=== PATIENT | female | born 1980 | race Caucasian/White ===

== ENCOUNTER 2017-07-24 20:25 | Emergency (ER) | payer MEDICAID ==
[~2017-07-24] VITALS: Ht 157.5 cm; Wt 111.1 kg
[~2017-07-24 20:25] MED LIST: LORA1TAB12; PAROXETINE HCL 20 MG TABLET
[2017-07-24 21:13] LABS: Basophils # (auto) 0.1 uL; Basophils % (auto) 0.6 % (0.0-2.0); Eosinophils # (auto) 0.3 uL; Eosinophils % (auto) 2.1 % (0.0-7.0); Hematocrit 40.2 % (36.0-46.0); Hemoglobin 13.5 g/dL (12.2-16.2); Lymphocytes # (auto) 2.7 uL; Lymphocytes % (auto) 19.6 % (10.0-50.0); Mean Corpuscular Hgb Conc. 33.5 g/dL (32.0-36.0); Mean Corpuscular Volume 86.5 fL (80.0-100.0); Monocytes # (auto) 0.9 uL; Monocytes % (auto) 6.6 % (0.0-12.0); Neutrophils # (auto) 9.6 uL; Neutrophils % (auto) 71.1 % (37.0-80.0); Platelet Count (auto) 403 10^3/uL (140-450); Red Blood Cells 4.65 10^6/uL (4.0-5.20); Red Cell Distribution Width 13.8 % (11.8-14.3); White Blood Cell 13.5 10^3/uL (4.4-10.8)
[2017-07-24 21:18] LABS: Urine Bacteria FEW /hpf (None Seen); Urine Blood Negative /uL (Negative); Urine Specific Gravity 1.011 (1.001-1.035); Urine WBC 2 /hpf (0 - 5)
[2017-07-24 21:37] LABS: Albumin 3.3 g/dL (3.4-5.0); BUN/Creatinine Ratio 18.5; Bilirubin, Total 0.2 mg/dL (0.2-1.0); Calcium 8.6 mg/dL (8.5-10.1); Potassium 3.7 mmol/L (3.5-5.1); Total Protein 7.5 g/dL (6.4-8.2)
[2017-07-25 03:06] VITALS: BP 133/84
[2017-07-25] MEDS ORDERED: LEVOFLOXACIN 250 MG TAB PO ONE (03:30)
[2017-07-25] MEDS ORDERED: ALBUTEROL SULF 2.5 MG/0.5ML(0.5%) NEB SOLN NEB ONE (03:30)
[2017-07-25] MEDS ORDERED: SODIUM CHLORIDE 0.9% 1,000 ML IV ONE (03:30)
[2017-07-25] MEDS ORDERED: methylPREDNISolone SOD SUCC 125 MG/2 ML VL IV ONE (03:30)
[2017-07-25] MEDS ORDERED: IPRATROPIUM BROM 0.5 MG/2.5ML INH SOL NEB ONE (03:30)
== END 2017-07-25 05:13 | disposition home or self-care (01) ==
LOC: ER 20:25
DX: J06.9 Acute upper respiratory infection, unspecified (principal); J45.909 Unspecified asthma, uncomplicated; D72.829 Elevated white blood cell count, unspecified; F17.210 Nicotine dependence, cigarettes, uncomplicated; E66.01 Morbid (severe) obesity due to excess calories; Z68.41 Body mass index [BMI] 40.0-44.9, adult
CPT/HCPCS: 36415; 71045; 74176; 80053; 81001; 83690; 84702; 85025; 94640; 96374; 99285; J2930

== ENCOUNTER 2018-02-17 04:42 | Emergency (ER) | payer MEDICAID ==
[~2018-02-17] VITALS: Ht 157.5 cm; Wt 104.3 kg
[2018-02-17 04:54] VITALS: BP 160/93
[2018-02-17] MEDS ORDERED: LORazepam 0.5 MG TAB PO ONE (06:45)
[2018-02-17] MEDS ORDERED: methylPREDNISolone SOD SUCC 125 MG/2 ML VL IM ONE (06:45)
== END 2018-02-17 07:29 | disposition home or self-care (01) ==
LOC: EDBD 04:42 → ER 04:50
DX: F41.9 Anxiety disorder, unspecified (principal); R06.02 Shortness of breath; F32.9 Major depressive disorder, single episode, unspecified; J45.909 Unspecified asthma, uncomplicated; G47.30 Sleep apnea, unspecified; F17.210 Nicotine dependence, cigarettes, uncomplicated
CPT/HCPCS: 71046; 81025; 96372; 99284; J2930

== ENCOUNTER 2018-03-30 23:01 | Emergency (ER) | payer MEDICAID ==
[~2018-03-30] VITALS: Ht 157.5 cm; Wt 99.8 kg
[2018-03-30 23:09] VITALS: BP 148/52
[2018-03-30] MEDS ORDERED: ALBUTEROL SULF 2.5 MG/0.5ML(0.5%) NEB SOLN HHN ONE (23:45)
[2018-03-30] MEDS ORDERED: IPRATROPIUM BROM 0.5 MG/2.5ML INH SOL HHN ONE (23:45)
[2018-03-31 01:17] LABS: Basophils # (auto) 0.1 uL; Basophils % (auto) 0.8 % (0.0-2.0); Eosinophils # (auto) 0.2 uL; Eosinophils % (auto) 1.8 % (0.0-7.0); Hematocrit 43.1 % (36.0-46.0); Hemoglobin 14.4 g/dL (12.2-16.2); Mean Corpuscular Hemoglobin 30.3 pg (28.0-32.0); Mean Corpuscular Hgb Conc. 33.4 g/dL (32.0-36.0); Mean Corpuscular Volume 90.6 fL (80.0-100.0); Monocytes # (auto) 0.7 uL; Monocytes % (auto) 7.8 % (0.0-12.0); Neutrophils # (auto) 5.4 uL; Neutrophils % (auto) 57.6 % (37.0-80.0); Nucleated Red Blood Cells % 0.1 %; Platelet Count (auto) 346 10^3/uL (140-450); Red Blood Cells 4.76 10^6/uL (4.0-5.20); Red Cell Distribution Width 15.4 % (11.8-14.3); White Blood Cell 9.4 10^3/uL (4.4-10.8)
[2018-03-31 01:34] LABS: Alanine Aminotransferase 35 U/L (13-56); Albumin 3.6 g/dL (3.4-5.0); Anion Gap 9 (5-15); Aspartate Aminotransferase 23 U/L (15-37); BUN/Creatinine Ratio 9.3; Blood Urea Nitrogen 7 mg/dL (7-18); Calcium 8.4 mg/dL (8.5-10.1); Carbon Dioxide 26 mmol/L (21-32); Chloride 104 mmol/L (98-107); GFR African American 112 mL/min; GFR Non-African American 92 mL/min; Glucose 92 mg/dL (74-106); Potassium 3.8 mmol/L (3.5-5.1); Sodium 139 mmol/L (136-145)
[2018-03-31 01:39] LABS: Alkaline Phosphatase 89 U/L (45-117); Bilirubin, Total 0.3 mg/dL (0.2-1.0); Total Protein 7.6 g/dL (6.4-8.2)
[2018-03-31] MEDS ORDERED: methylPREDNISolone SOD SUCC 125 MG/2 ML VL IM ONE (02:00)
== END 2018-03-31 04:57 | disposition home or self-care (01) ==
LOC: EDBD 23:01 → ER 23:06
DX: J45.901 Unspecified asthma with (acute) exacerbation (principal); Z87.891 Personal history of nicotine dependence
CPT/HCPCS: 36415; 71045; 80053; 83735; 83880; 84484; 85025; 94640; 96372; 99284; J2930; J7611; J7644

== ENCOUNTER 2018-04-08 11:54 | Emergency (ER) | payer MEDICAID ==
[~2018-04-08] VITALS: Ht 157.5 cm; Wt 104.3 kg
[2018-04-08 12:36] VITALS: BP 137/88
[2018-04-08] MEDS ORDERED: KETOROLAC TROMETH 60MG/2ML VIAL IM ONE (13:30)
[2018-04-08] MEDS ORDERED: IPRATROPIUM BROM 0.5 MG/2.5ML INH SOL NEB ONE (13:30)
[2018-04-08] MEDS ORDERED: ALBUTEROL SULF 2.5 MG/0.5ML(0.5%) NEB SOLN NEB ONE (13:30)
[2018-04-08] MEDS ORDERED: ALPRAZolam 0.5 MG TAB PO ONE (13:45)
== END 2018-04-08 13:53 | disposition home or self-care (01) ==
LOC: ER 11:56
DX: J45.901 Unspecified asthma with (acute) exacerbation (principal); G43.909 Migraine, unspecified, not intractable, without status migrainosus; F41.1 Generalized anxiety disorder
CPT/HCPCS: 71046; 94640; 96372; 99283; J1885; J7611; J7644

== ENCOUNTER 2018-04-22 11:05 | Emergency (ER) | payer MEDICAID ==
[~2018-04-22] VITALS: Ht 157.5 cm; Wt 99.8 kg
[2018-04-22 12:36] VITALS: BP 125/81
[2018-04-22] MEDS ORDERED: methylPREDNISolone SOD SUCC 125 MG/2 ML VL IM ONE (13:15)
[2018-04-22] MEDS ORDERED: IPRATROPIUM BROM 0.5 MG/2.5ML INH SOL NEB ONE (13:15)
[2018-04-22] MEDS ORDERED: diphenhdrAMINE HCL 50 MG/1 ML VL IM ONE (13:15)
[2018-04-22] MEDS ORDERED: ALBUTEROL SULF 2.5 MG/0.5ML(0.5%) NEB SOLN NEB ONE (13:15)
== END 2018-04-22 13:53 | disposition home or self-care (01) ==
LOC: ER 11:05
DX: J45.901 Unspecified asthma with (acute) exacerbation (principal); F41.1 Generalized anxiety disorder; F32.9 Major depressive disorder, single episode, unspecified; Z87.891 Personal history of nicotine dependence
CPT/HCPCS: 94640; 96372; 99283; J2930; J7611; J7644

== ENCOUNTER 2018-05-18 07:16 | Emergency (ER) | payer MEDICAID ==
[~2018-05-18] VITALS: Ht 157.5 cm; Wt 108.9 kg
[2018-05-18 07:45] VITALS: BP 150/93
[2018-05-18] MEDS ORDERED: ALBUTEROL SULF 2.5 MG/0.5ML(0.5%) NEB SOLN NEB ONE (07:45)
[2018-05-18] MEDS ORDERED: IPRATROPIUM BROM 0.5 MG/2.5ML INH SOL NEB ONE (07:45)
[2018-05-18] MEDS ORDERED: methylPREDNISolone SOD SUCC 125 MG/2 ML VL IM ONE (08:15)
== END 2018-05-18 08:31 | disposition home or self-care (01) ==
LOC: ER 07:18
DX: J02.9 Acute pharyngitis, unspecified (principal); J45.909 Unspecified asthma, uncomplicated; Z87.891 Personal history of nicotine dependence
CPT/HCPCS: 94640; 96372; 99283; J2930; J7611; J7644

== ENCOUNTER 2018-05-18 09:13 | Emergency (ER) | payer MEDICAID ==
[~2018-05-18] VITALS: Ht 157.5 cm; Wt 108.9 kg
[2018-05-18 09:18] VITALS: BP 141/83
[2018-05-18] MEDS ORDERED: diphenhdrAMINE HCL 25 MG CAP PO ONE (10:15)
== END 2018-05-18 11:27 | disposition home or self-care (01) ==
LOC: ER 09:13
DX: F41.9 Anxiety disorder, unspecified (principal); F32.9 Major depressive disorder, single episode, unspecified; J45.909 Unspecified asthma, uncomplicated; Z88.8 Allergy status to other drugs, medicaments and biological substances; Z79.899 Other long term (current) drug therapy

== ENCOUNTER 2018-08-29 18:29 | Emergency (ER) | payer MEDICAID ==
[~2018-08-29] VITALS: Ht 157.5 cm; Wt 104.3 kg
[2018-08-29 18:45] VITALS: BP 138/82
[2018-08-29] MEDS ORDERED: DexAMETHasone SOD PHOS 10MG/1ML VIAL INJ IM ONE (20:45)
[2018-08-29] MEDS ORDERED: cefTRIAXone SOD 1,000 MG VL IM ONE (20:45)
== END 2018-08-29 21:29 | disposition home or self-care (01) ==
LOC: ER 18:31
DX: J06.9 Acute upper respiratory infection, unspecified (principal); J30.9 Allergic rhinitis, unspecified; J35.1 Hypertrophy of tonsils
CPT/HCPCS: 96372; 99283; J0696; J1100

== ENCOUNTER 2019-02-14 19:11 | Emergency (ER) | payer MEDICAID ==
[~2019-02-14] VITALS: Ht 157.5 cm; Wt 104.3 kg
[2019-02-14 20:15] LABS: Basophils # (auto) 0.1 uL; Basophils % (auto) 0.6 % (0.0-2.0); Eosinophils # (auto) 0.2 uL; Eosinophils % (auto) 2.2 % (0.0-7.0); Hematocrit 40.4 % (36.0-46.0); Hemoglobin 13.6 g/dL (12.2-16.2); Lymphocytes # (auto) 2.6 uL; Lymphocytes % (auto) 25.3 % (10.0-50.0); Mean Corpuscular Hemoglobin 30.3 pg (28.0-32.0); Mean Corpuscular Hgb Conc. 33.6 g/dL (32.0-36.0); Mean Corpuscular Volume 90.2 fL (80.0-100.0); Monocytes # (auto) 0.7 uL; Monocytes % (auto) 6.3 % (0.0-12.0); Neutrophils # (auto) 6.8 uL; Neutrophils % (auto) 65.6 % (37.0-80.0); Platelet Count (auto) 356 10^3/uL (140-450); Red Blood Cells 4.48 10^6/uL (4.0-5.20); Red Cell Distribution Width 14.1 % (11.8-14.3); White Blood Cell 10.3 10^3/uL (4.4-10.8)
[2019-02-14 20:34] LABS: Alcohol, Urine < 3.0 mg/dL (0-5); Amphetamine Screen, Urine NEGATIVE (NEGATIVE); Barbiturate Scree,Urine NEGATIVE (NEGATIVE); Benzodiazephine Screen, Urine NEGATIVE (NEGATIVE); Cannabinoid Screen, Urine NEGATIVE (NEGATIVE); Cocaine Screen, Urine NEGATIVE (NEGATIVE); Opiate Scree,Urine NEGATIVE (NEGATIVE); Phencyclidine Screen, Urine NEGATIVE (NEGATIVE); Urine Bacteria FEW /hpf (None Seen); Urine Blood 1+ /uL (Negative); Urine WBC 4 /hpf (0 - 5)
[2019-02-14 20:35] LABS: Albumin 3.7 g/dL (3.4-5.0); Calcium 8.5 mg/dL (8.5-10.1); Potassium 3.7 mmol/L (3.5-5.1)
[2019-02-14 20:39] LABS: BUN/Creatinine Ratio 11.4; Bilirubin, Total 0.2 mg/dL (0.2-1.0); Total Protein 7.3 g/dL (6.4-8.2)
[2019-02-14 23:08] VITALS: BP 145/85
== END 2019-02-14 23:18 | disposition home or self-care (01) ==
LOC: ER 19:11
DX: J45.901 Unspecified asthma with (acute) exacerbation (principal); Z77.22 Contact with and (suspected) exposure to environmental tobacco smoke (acute) (chronic)
CPT/HCPCS: 36415; 71045; 80053; 80307; 81001; 81025; 85025

== ENCOUNTER 2019-05-02 23:42 | Emergency (ER) | payer MEDICAID ==
[~2019-05-02] VITALS: Ht 162.6 cm; Wt 90.7 kg
[2019-05-03 06:04] VITALS: BP 125/91
== END 2019-05-03 06:35 | disposition home or self-care (01) ==
LOC: EDBD 23:42 → ER 23:45
DX: F41.9 Anxiety disorder, unspecified (principal); J45.909 Unspecified asthma, uncomplicated; F32.9 Major depressive disorder, single episode, unspecified; Z76.0 Encounter for issue of repeat prescription

== ENCOUNTER 2019-07-13 09:52 | Emergency (ER) | payer MEDICAID ==
[~2019-07-13] VITALS: Ht 157.5 cm; Wt 99.8 kg
[2019-07-13 11:01] VITALS: BP 127/77
[2019-07-13] MEDS ORDERED: methylPREDNISolone SOD SUCC 125 MG/2 ML VL IM ONE (11:45)
[2019-07-13] MEDS ORDERED: cefTRIAXone SOD 1,000 MG VL IM ONE (11:45)
[2019-07-13] MEDS ORDERED: LIDOCAINE 1% HCL (LOCAL ANESTH.) INJ 20ML MDV ONE (12:11)
== END 2019-07-13 12:44 | disposition home or self-care (01) ==
LOC: ER 09:52
DX: R21 Rash and other nonspecific skin eruption (principal); L08.9 Local infection of the skin and subcutaneous tissue, unspecified; J45.909 Unspecified asthma, uncomplicated; Z88.8 Allergy status to other drugs, medicaments and biological substances; Z79.899 Other long term (current) drug therapy
CPT/HCPCS: 96372; 99284; J0696; J2001; J2930

== ENCOUNTER 2019-08-20 05:42 | Emergency (ER) | payer MEDICAID ==
[~2019-08-20] VITALS: Ht 162.6 cm; Wt 99.8 kg
[~2019-08-20 05:42] MED LIST changes: -LORA1TAB12; +LORA1TAB23
[2019-08-20 07:10] VITALS: BP 179/89
[2019-08-20] MEDS ORDERED: IPRATROPIUM BROM 0.5 MG/2.5ML INH SOL NEB ONE (07:15)
[2019-08-20] MEDS ORDERED: ALBUTEROL SULF 2.5 MG/0.5ML(0.5%) NEB SOLN NEB ONE (07:15)
== END 2019-08-20 07:35 | disposition home or self-care (01) ==
LOC: EDBD 05:42 → ER 05:42
DX: J45.901 Unspecified asthma with (acute) exacerbation (principal); F41.9 Anxiety disorder, unspecified; Z76.0 Encounter for issue of repeat prescription
CPT/HCPCS: 94640; 99283; J7644

== ENCOUNTER 2019-09-29 12:11 | Emergency (ER) | payer MEDICAID ==
[~2019-09-29] VITALS: Ht 157.5 cm; Wt 108.9 kg
[2019-09-29] MEDS ORDERED: ACETAMINOPHEN 325 MG TAB PO ONE (14:30)
[2019-09-29 17:00] VITALS: BP 140/92
== END 2019-09-29 18:02 | disposition home or self-care (01) ==
LOC: ER 12:11
DX: J20.8 Acute bronchitis due to other specified organisms (principal); Z20.828 Contact with and (suspected) exposure to other viral communicable diseases
CPT/HCPCS: 36415; 71045; 87426

== ENCOUNTER 2021-06-20 08:37 | Emergency (ER) | payer MEDICAID ==
[~2021-06-20] VITALS: Ht 157.5 cm; Wt 83.9 kg
[2021-06-20] MEDS ORDERED: LORazepam 2MG/ML-1ML VIAL IV ONE (09:30)
[2021-06-20] MEDS ORDERED: ONDANSETRON HCL 4 MG/2 ML VIAL IV ONE (09:30)
[2021-06-20] MEDS ORDERED: IPRATROPIUM BROM 0.5 MG/2.5ML INH SOL NEB ONE (10:30)
[2021-06-20] MEDS ORDERED: ALBUTEROL SULF 2.5 MG/0.5ML(0.5%) NEB SOLN NEB ONE (10:30)
[2021-06-20] MEDS ORDERED: SODIUM CHLORIDE 0.9% 1,000 ML IV ONE ×2 (10:30→10:45)
[2021-06-20 11:14] LABS: Basophils # (auto) 0.1 10 ^3/uL (0-0.2); Basophils % (auto) 1.3 % (0.0-2.0); Eosinophils # (auto) 0.1 10 ^3/uL (0-0.8); Eosinophils % (auto) 1.3 % (0.0-7.0); Hematocrit 39.1 % (36.0-46.0); Hemoglobin 13.3 g/dL (12.2-16.2); Lymphocytes # (auto) 1.3 10 ^3/uL (0.4-5.4); Lymphocytes % (auto) 16.2 % (10.0-50.0); Mean Corpuscular Hemoglobin 31.9 pg (28.0-32.0); Mean Corpuscular Hgb Conc. 33.9 g/dL (32.0-36.0); Mean Corpuscular Volume 94.2 fL (80.0-100.0); Monocytes # (auto) 0.5 10 ^3/uL (0-1.3); Monocytes % (auto) 6.6 % (0.0-12.0); Neutrophils # (auto) 6.1 10 ^3/uL (1.6-8.6); Neutrophils % (auto) 74.6 % (37.0-80.0); Red Blood Cells 4.15 10^6/uL (4.0-5.20); Red Cell Distribution Width 14.8 % (11.8-14.3); White Blood Cell 8.2 10^3/uL (4.4-10.8)
[2021-06-20 11:38] LABS: Albumin 3.7 g/dL (3.4-5.0); BUN/Creatinine Ratio 6.5; Calcium 8.4 mg/dL (8.5-10.1); Magnesium 1.8 mg/dL (1.6-2.6); Potassium 3.7 mmol/L (3.5-5.1)
[2021-06-20 11:42] LABS: Bilirubin, Total 0.7 mg/dL (0.2-1.0); Total Protein 7.8 g/dL (6.4-8.2)
[2021-06-20] MEDS ORDERED: IOHEXOL 350 MG/ML 100ML IJ ONE (12:09)
[2021-06-20 14:41] LABS: Urine Bacteria NONE SEEN /hpf (None Seen); Urine Blood 3+ /uL (Negative); Urine Mucus FEW (None Seen); Urine Specific Gravity 1.017 (1.001-1.035); Urine WBC 9 /hpf (0 - 5)
[2021-06-20] MEDS ORDERED: cefTRIAXone 1GM/50ML D5W 50 ML IV ONE (16:15)
[2021-06-20] MEDS ORDERED: ACETAMINOPHEN 325 MG TAB PO ONE (16:15)
[2021-06-20] MEDS ORDERED: PRED20TA2 PO (18:07)
[2021-06-20] MEDS ORDERED: CIPR-173 PO (18:07)
[2021-06-20] MEDS ORDERED: BACI1OIN45 EX (18:07)
[2021-06-20] MEDS ORDERED: ALBUAER3 IN (18:07)
[2021-06-20 18:34] VITALS: BP 147/83
== END 2021-06-20 18:52 | disposition home or self-care (01) ==
LOC: EDBD 08:37 → ER 08:37
DX: J45.901 Unspecified asthma with (acute) exacerbation (principal); N39.0 Urinary tract infection, site not specified; K76.0 Fatty (change of) liver, not elsewhere classified; K44.9 Diaphragmatic hernia without obstruction or gangrene; Z77.22 Contact with and (suspected) exposure to environmental tobacco smoke (acute) (chronic)
CPT/HCPCS: 36415; 71046; 71275; 80053; 81001; 83735; 84443; 85025; 85379; 93005; 94640; 96361; 96365; 96375; 99285; J0696; J2060; J2405; J7030; J7644; Q9967

== ENCOUNTER 2021-07-16 10:51 | Emergency (ER) | payer MEDICAID ==
[~2021-07-16] VITALS: Ht 157.5 cm; Wt 108.9 kg
[~2021-07-16 10:51] MED LIST changes: +ALBUAER3 IN; +BACI1OIN45 EX; +CIPR-173 PO; +PRED20TA2 PO
[2021-07-16] MEDS ORDERED: ACETAMINOPHEN/CODEINE#3 (300/30mg) TAB PO ONE (16:00)
[2021-07-16] MEDS ORDERED: ONDANSETRON ODT 4 MG TAB PO ONE (16:00)
[2021-07-16 16:46] VITALS: BP 146/90
[2021-07-16] MEDS ORDERED: ACE3T PO (16:51)
== END 2021-07-16 17:23 | disposition home or self-care (01) ==
LOC: ER 10:51
DX: S83.91XA Sprain of unspecified site of right knee, initial encounter (principal); J45.909 Unspecified asthma, uncomplicated; Z77.22 Contact with and (suspected) exposure to environmental tobacco smoke (acute) (chronic); X58.XXXA Exposure to other specified factors, initial encounter; Y93.89 Activity, other specified; Y92.89 Other specified places as the place of occurrence of the external cause; Y99.8 Other external cause status
CPT/HCPCS: 29505; 73562; 93971; 99284; Q0162

== ENCOUNTER 2021-08-17 10:11 | Emergency (ER) | payer MEDICAID ==
[~2021-08-17] VITALS: Ht 157.5 cm; Wt 113.4 kg
[~2021-08-17 10:11] MED LIST changes: +ACE3T PO
[2021-08-17 11:02] LABS: Urine Bacteria NONE SEEN /hpf (None Seen); Urine Blood 3+ /uL (Negative); Urine WBC 4 /hpf (0 - 5)
[2021-08-17 11:09] LABS: Basophils # (auto) 0.1 10 ^3/uL (0-0.2); Basophils % (auto) 0.9 % (0.0-2.0); Eosinophils # (auto) 0.2 10 ^3/uL (0-0.8); Eosinophils % (auto) 3.1 % (0.0-7.0); Hematocrit 38.1 % (36.0-46.0); Hemoglobin 12.3 g/dL (12.2-16.2); Lymphocytes # (auto) 1.2 10 ^3/uL (0.4-5.4); Lymphocytes % (auto) 18.5 % (10.0-50.0); Mean Corpuscular Hemoglobin 31.2 pg (28.0-32.0); Mean Corpuscular Hgb Conc. 32.2 g/dL (32.0-36.0); Mean Corpuscular Volume 96.8 fL (80.0-100.0); Monocytes # (auto) 0.6 10 ^3/uL (0-1.3); Monocytes % (auto) 9.2 % (0.0-12.0); Neutrophils # (auto) 4.3 10 ^3/uL (1.6-8.6); Neutrophils % (auto) 68.3 % (37.0-80.0); Red Blood Cells 3.93 10^6/uL (4.0-5.20); Red Cell Distribution Width 15.1 % (11.8-14.3); White Blood Cell 6.3 10^3/uL (4.4-10.8)
[2021-08-17 11:27] LABS: Albumin 3.4 g/dL (3.4-5.0); Calcium 8.9 mg/dL (8.5-10.1); Potassium 3.6 mmol/L (3.5-5.1)
[2021-08-17 11:31] LABS: BUN/Creatinine Ratio 6.5; Bilirubin, Total 0.8 mg/dL (0.2-1.0); Total Protein 7.5 g/dL (6.4-8.2)
[2021-08-17] MEDS ORDERED: TRAM-297 PO (16:22)
[2021-08-17] MEDS ORDERED: NITR-87 PO (16:22)
[2021-08-17] MEDS ORDERED: SODIUM CHLORIDE 0.9% 1,000 ML IV ONE (18:15)
[2021-08-17] MEDS ORDERED: MORPHINE SULFATE 4 MG/ML SYR/VIAL IV ONE (18:15)
[2021-08-17] MEDS ORDERED: ONDANSETRON HCL 4 MG/2 ML VIAL IV ONE (18:15)
[2021-08-17 20:25] VITALS: BP 168/83
== END 2021-08-18 00:50 | disposition home or self-care (01) ==
LOC: ER 10:11
DX: N39.0 Urinary tract infection, site not specified (principal); I10 Essential (primary) hypertension; J45.909 Unspecified asthma, uncomplicated; Z79.899 Other long term (current) drug therapy; Z88.8 Allergy status to other drugs, medicaments and biological substances
CPT/HCPCS: 36415; 74176; 80053; 81001; 81025; 82150; 83690; 85025; 93005; 96361; 96374; 96375; 99285; J2270; J2405; J7030

== ENCOUNTER 2022-01-12 13:17 | Emergency (ER) | payer MEDICAID ==
[~2022-01-12] VITALS: Ht 167.6 cm; Wt 120.0 kg
[~2022-01-12 13:17] MED LIST changes: +NITR-87 PO; +TRAM-297 PO
[2022-01-12 15:29] LABS: Basophils # (auto) 0.1 10 ^3/uL (0-0.2); Basophils % (auto) 0.9 % (0.0-2.0); Eosinophils # (auto) 0.1 10 ^3/uL (0-0.8); Eosinophils % (auto) 1.1 % (0.0-7.0); Hematocrit 45.4 % (36.0-46.0); Hemoglobin 15.1 g/dL (12.2-16.2); Lymphocytes # (auto) 1.6 10 ^3/uL (0.4-5.4); Lymphocytes % (auto) 28.3 % (10.0-50.0); Mean Corpuscular Hgb Conc. 33.3 g/dL (32.0-36.0); Mean Corpuscular Volume 89.9 fL (80.0-100.0); Monocytes # (auto) 0.5 10 ^3/uL (0-1.3); Monocytes % (auto) 9.6 % (0.0-12.0); Neutrophils # (auto) 3.4 10 ^3/uL (1.6-8.6); Neutrophils % (auto) 60.1 % (37.0-80.0); Nucleated Red Blood Cells % 0.2 %; Red Blood Cells 5.05 10^6/uL (4.0-5.20); Red Cell Distribution Width 14.8 % (11.8-14.3); White Blood Cell 5.7 10^3/uL (4.4-10.8)
[2022-01-12 15:53] LABS: Albumin 3.7 g/dL (3.4-5.0); BUN/Creatinine Ratio 7.2; Calcium 8.5 mg/dL (8.5-10.1); Potassium 3.5 mmol/L (3.5-5.1)
[2022-01-12 15:56] LABS: Bilirubin, Total 0.3 mg/dL (0.2-1.0); Total Protein 7.4 g/dL (6.4-8.2)
[2022-01-12 21:02] VITALS: BP 129/80
== END 2022-01-12 21:06 | disposition home or self-care (01) ==
LOC: EDBD 13:17 → ER 13:26
DX: F10.10 Alcohol abuse, uncomplicated (principal); R41.82 Altered mental status, unspecified; J45.909 Unspecified asthma, uncomplicated; I10 Essential (primary) hypertension; Z77.22 Contact with and (suspected) exposure to environmental tobacco smoke (acute) (chronic); Z88.6 Allergy status to analgesic agent
CPT/HCPCS: 36415; 80053; 80320; 83690; 84702; 85025

== ENCOUNTER 2022-10-30 10:02 | Inpatient (IN) | payer MEDICAID ==
[~2022-10-30] VITALS: Ht 157.5 cm; Wt 111.4 kg
[~2022-10-30 10:02] MED LIST changes: +LORA-1123; +LORA-1123 PO; -LORA1TAB23
[2022-10-30] MEDS ORDERED: ALBUTEROL SULF 2.5 MG/0.5ML(0.5%) NEB SOLN NEB ONE (10:15)
[2022-10-30] MEDS ORDERED: IPRATROPIUM BROM 0.5 MG/2.5ML INH SOL NEB ONE (10:15)
[2022-10-30] MEDS ORDERED: DexAMETHasone SOD PHOS 10MG/1ML VIAL INJ IV ONE (10:15)
[2022-10-30 10:30] VITALS: PULSE 72; RESP 23; O2SAT 98
[2022-10-30 10:36] LABS: Basophils # (auto) 0.1 10 ^3/uL (0-0.2); Basophils % (auto) 1.3 % (0.0-2.0); Eosinophils # (auto) 0 10 ^3/uL (0-0.8); Eosinophils % (auto) 0.4 % (0.0-7.0); Hemoglobin 12.6 g/dL (12.2-16.2); Lymphocytes # (auto) 1.6 10 ^3/uL (0.4-5.4); Lymphocytes % (auto) 17.1 % (10.0-50.0); Mean Corpuscular Hgb Conc. 31.6 g/dL (32.0-36.0); Mean Corpuscular Volume 88.8 fL (80.0-100.0); Monocytes # (auto) 0.6 10 ^3/uL (0-1.3); Monocytes % (auto) 6.8 % (0.0-12.0); Neutrophils # (auto) 6.8 10 ^3/uL (1.6-8.6); Neutrophils % (auto) 74.4 % (37.0-80.0); Nucleated Red Blood Cells % 0.1 %; Red Blood Cells 4.51 10^6/uL (4.0-5.20); Red Cell Distribution Width 15.3 % (11.8-14.3); White Blood Cell 9.2 10^3/uL (4.4-10.8)
[2022-10-30 10:53] LABS: INR 1.05 (0.9-1.15); Partial Thromboplastin Time 27.2 SEC (24.5-34.5)
[2022-10-30 10:54] LABS: Alanine Aminotransferase 30 U/L (7-40); Albumin 4.5 g/dL (3.2-4.8); Alkaline Phosphatase 112 U/L (46-116); Anion Gap 7 (5-15); Aspartate Aminotransferase 40 U/L (13-40); Bilirubin, Total 0.2 mg/dL (0.2-1.0); Calcium 8.1 mg/dL (8.7-10.4); Carbon Dioxide 26 mmol/L (20-30); Chloride 109 mmol/L (98-107); Glucose 100 mg/dL (74-106); Potassium 3.8 mmol/L (3.5-5.1); Sodium 142 mmol/L (136-145)
[2022-10-30 11:37] LABS: BUN/Creatinine Ratio 7.6 (10.0-20.0); Blood Urea Nitrogen < 5 mg/dL (9-23)
[2022-10-30] MEDS ORDERED: AZITHROMYCIN 500MG/ 250ML 250 ML IV ONE (12:15)
[2022-10-30] MEDS ORDERED: ENOXAPARIN SOD 100 MG/1 ML SYRINGE SC ONE (12:15)
[2022-10-30] MEDS ORDERED: PIPERACILLIN-TAZOB 3.375GM 100 ML IV ONE (12:15)
[2022-10-30] MEDS ORDERED: MORPHINE SULFATE INJ 2 MG/ml SYRG IV PRN ×2 (14:30)
[2022-10-30] MEDS: ENOXAPARIN SOD 40 MG/0.4 ML SYRINGE SC SCH (14:30)
[2022-10-30] MEDS ORDERED: ONDANSETRON HCL 4 MG/2 ML VIAL IV PRN (14:30)
[2022-10-30] MEDS ORDERED: IPRATROPIUM BROM 0.5 MG/2.5ML INH SOL NEB PRN (14:30)
[2022-10-30] MEDS ORDERED: NITROGLYCERIN 0.4 MG SL TAB SL PRN (14:30)
[2022-10-30] MEDS ORDERED: ACETAMINOPHEN 325 MG TAB PO PRN (14:30)
[2022-10-30] MEDS ORDERED: DOCUSATE SOD 100 MG CAP PO PRN (14:30)
[2022-10-30] MEDS ORDERED: TEMAZEPAM 15 MG CAP PO PRN (14:30)
[2022-10-30 15:05] LABS: Urine Bacteria NONE SEEN /hpf (None Seen); Urine Blood 2+ /uL (Negative); Urine Clarity HAZY (Clear); Urine Color Yellow (Yellow); Urine Mucus FEW (None Seen); Urine Protein, UAD TRACE (Negative); Urine Specific Gravity 1.022 (1.001-1.035); Urine Urobilinogen Normal (Negative); Urine WBC 23 /hpf (0 - 5); Urine pH 5.5 (5.0-8.0)
[2022-10-30 16:19] LABS: COVID19 ANTIGEN SOFIA FIA NEGATIVE (NEGATIVE)
[2022-10-30 20:05] VITALS: PULSE 94; RESP 23; O2SAT 95
[2022-10-30] MEDS ORDERED: ALPRAZolam 0.5 MG TAB PO PRN (21:30)
[2022-10-30 22:03] VITALS: BP 135/75; PULSE 76; RESP 16; TEMP 98.7; O2SAT 94
[2022-10-30] MEDS: PIPERACILLIN-TAZOB 3.375GM 100 ML IV SCH (22:14)
[2022-10-30] MEDS: HYDROcodone-ACET 5/325MG TAB PO PRN (22:15)
[2022-10-30] MEDS: LISINOPRIL 20 MG TAB PO SCH (22:15)
[2022-10-30 22:24] VITALS: BP 135/75; PULSE 76; RESP 16; TEMP 98.7; O2SAT 94
[2022-10-31] VITALS (19 sets, daily range): BP systolic 107–142; BP diastolic 60–92; PULSE 47–82; RESP 12–23; TEMP 37.1; O2SAT 92–99
[2022-10-31] MEDS: PIPERACILLIN-TAZOB 3.375GM 100 ML IV SCH ×3 (05:33→22:11)
[2022-10-31 06:31] LABS: Alanine Aminotransferase 24 U/L (7-40); Albumin 4.5 g/dL (3.2-4.8); Alkaline Phosphatase 100 U/L (46-116); Anion Gap 5 (5-15); Aspartate Aminotransferase 20 U/L (13-40); BUN/Creatinine Ratio 8.2 (10.0-20.0); Bilirubin, Total 0.5 mg/dL (0.2-1.0); Blood Urea Nitrogen 6 mg/dL (9-23); Calcium 8.8 mg/dL (8.7-10.4); Carbon Dioxide 28 mmol/L (20-30); Chloride 105 mmol/L (98-107); Glucose 137 mg/dL (74-106); Potassium 3.7 mmol/L (3.5-5.1); Sodium 138 mmol/L (136-145)
[2022-10-31 06:33] LABS: Basophils # (auto) 0 10 ^3/uL (0-0.2); Basophils % (auto) 0.1 % (0.0-2.0); Eosinophils # (auto) 0 10 ^3/uL (0-0.8); Hematocrit 37.5 % (36.0-46.0); Hemoglobin 12.1 g/dL (12.2-16.2); Lymphocytes # (auto) 1.3 10 ^3/uL (0.4-5.4); Lymphocytes % (auto) 12.3 % (10.0-50.0); Mean Corpuscular Hemoglobin 28.4 pg (28.0-32.0); Mean Corpuscular Hgb Conc. 32.2 g/dL (32.0-36.0); Mean Corpuscular Volume 88.1 fL (80.0-100.0); Monocytes # (auto) 0.5 10 ^3/uL (0-1.3); Monocytes % (auto) 5.1 % (0.0-12.0); Neutrophils # (auto) 8.8 10 ^3/uL (1.6-8.6); Neutrophils % (auto) 82.5 % (37.0-80.0); Red Blood Cells 4.25 10^6/uL (4.0-5.20); White Blood Cell 10.6 10^3/uL (4.4-10.8)
[2022-10-31] MEDS ORDERED: GABA-1250 PO (07:45)
[2022-10-31] MEDS ORDERED: CITA10TA8 PO (07:45)
[2022-10-31] MEDS ORDERED: LORA-205 PO (07:45)
[2022-10-31] MEDS: PANTOPRAZOLE 40 MG TAB PO SCH (09:17)
[2022-10-31] MEDS: LISINOPRIL 20 MG TAB PO SCH (09:17)
[2022-10-31] MEDS: HYDROcodone-ACET 5/325MG TAB PO PRN ×2 (09:17→16:14)
[2022-10-31] MEDS: ASPirin 81 mg TAB PO SCH (09:17)
[2022-10-31] MEDS: FUROSEMIDE 20 MG/2 ML VIAL IV SCH (09:18)
[2022-10-31] MEDS: ENOXAPARIN SOD 40 MG/0.4 ML SYRINGE SC SCH (09:18)
[2022-10-31] MEDS: ALBUTEROL SULF 2.5 MG/0.5ML(0.5%) NEB SOLN NEB SCH (16:31)
[2022-10-31] MEDS: IPRATROPIUM BROM 0.5 MG/2.5ML INH SOL NEB SCH (19:22)
[2022-11-01] VITALS (18 sets, daily range): BP systolic 101–125; BP diastolic 61–80; PULSE 47–86; RESP 16–22; TEMP 35.8; O2SAT 95–99
[2022-11-01] MEDS: ALBUTEROL SULF 2.5 MG/0.5ML(0.5%) NEB SOLN NEB SCH ×3 (00:31→18:35)
[2022-11-01] MEDS: IPRATROPIUM BROM 0.5 MG/2.5ML INH SOL NEB SCH ×4 (00:32→18:35)
[2022-11-01] MEDS: PIPERACILLIN-TAZOB 3.375GM 100 ML IV SCH ×2 (05:35→13:35)
[2022-11-01 06:04] LABS: Basophils # (auto) 0.1 10 ^3/uL (0-0.2); Basophils % (auto) 0.6 % (0.0-2.0); Eosinophils # (auto) 0.1 10 ^3/uL (0-0.8); Eosinophils % (auto) 1.1 % (0.0-7.0); Hematocrit 37.7 % (36.0-46.0); Hemoglobin 12.1 g/dL (12.2-16.2); Lymphocytes # (auto) 3.2 10 ^3/uL (0.4-5.4); Lymphocytes % (auto) 37.4 % (10.0-50.0); Mean Corpuscular Hemoglobin 28.4 pg (28.0-32.0); Mean Corpuscular Hgb Conc. 32.1 g/dL (32.0-36.0); Mean Corpuscular Volume 88.3 fL (80.0-100.0); Monocytes # (auto) 0.6 10 ^3/uL (0-1.3); Monocytes % (auto) 7.5 % (0.0-12.0); Neutrophils # (auto) 4.5 10 ^3/uL (1.6-8.6); Neutrophils % (auto) 53.4 % (37.0-80.0); Nucleated Red Blood Cells % 0.1 %; Red Blood Cells 4.27 10^6/uL (4.0-5.20); Red Cell Distribution Width 15.2 % (11.8-14.3); White Blood Cell 8.4 10^3/uL (4.4-10.8)
[2022-11-01 06:20] LABS: Alanine Aminotransferase 32 U/L (7-40); Albumin 4.3 g/dL (3.2-4.8); Alkaline Phosphatase 85 U/L (46-116); Anion Gap 4 (5-15); Aspartate Aminotransferase 29 U/L (13-40); Bilirubin, Total 0.5 mg/dL (0.2-1.0); Blood Urea Nitrogen 10 mg/dL (9-23); Carbon Dioxide 32 mmol/L (20-30); Chloride 105 mmol/L (98-107); Glucose 97 mg/dL (74-106); Potassium 3.8 mmol/L (3.5-5.1); Sodium 141 mmol/L (136-145); Total Protein 6.7 g/dL (5.7-8.2)
[2022-11-01] MEDS: HYDROcodone-ACET 5/325MG TAB PO PRN (08:25)
[2022-11-01] MEDS ORDERED: AZITHROMYCIN 250 MG TAB PO SCH (10:00)
[2022-11-01] MEDS ORDERED: methylPREDNISolone SOD SUCC 40 MG/ML VL IV SCH (10:00)
[2022-11-01] MEDS: ENOXAPARIN SOD 40 MG/0.4 ML SYRINGE SC SCH (10:09)
[2022-11-01] MEDS: LISINOPRIL 20 MG TAB PO SCH (10:10)
[2022-11-01] MEDS: PANTOPRAZOLE 40 MG TAB PO SCH (10:10)
[2022-11-01] MEDS: ASPirin 81 mg TAB PO SCH (10:10)
[2022-11-01] MEDS: FUROSEMIDE 20 MG/2 ML VIAL IV SCH (10:11)
[2022-11-01] MEDS ORDERED: PRED20TA2 PO (11:14)
[2022-11-01] MEDS ORDERED: AZIT500T66 PO (11:14)
== END 2022-11-01 22:10 | disposition home or self-care (01) | DRG 133 ==
LOC: ER 10:02 → EDBD 10:02 → TELE 14:27 → TELE-WESTW 21:39
PROVIDERS: ADMIT Nurse Practitioner; ATTEND Nurse Practitioner
PROC: 5A09357 Assistance with Respiratory Ventilation, Less than 24 Consecutive Hours, Continuous Positive Airway Pressure (ICD-10-PCS; principal; 2022-10-31)
PROC: 5A09357 Assistance with Respiratory Ventilation, Less than 24 Consecutive Hours, Continuous Positive Airway Pressure (ICD-10-PCS; 2022-11-01)
DX: J96.01 Acute respiratory failure with hypoxia (principal); I21.A1 Myocardial infarction type 2; J15.6 Pneumonia due to other Gram-negative bacteria; I11.0 Hypertensive heart disease with heart failure; I50.32 Chronic diastolic (congestive) heart failure; J44.0 Chronic obstructive pulmonary disease with (acute) lower respiratory infection; J44.1 Chronic obstructive pulmonary disease with (acute) exacerbation; F41.9 Anxiety disorder, unspecified; E66.01 Morbid (severe) obesity due to excess calories; G47.33 Obstructive sleep apnea (adult) (pediatric); Z20.822 Contact with and (suspected) exposure to COVID-19; F17.200 Nicotine dependence, unspecified, uncomplicated; N39.0 Urinary tract infection, site not specified; J98.11 Atelectasis; Z80.9 Family history of malignant neoplasm, unspecified; Z68.41 Body mass index [BMI] 40.0-44.9, adult; Z82.49 Family history of ischemic heart disease and other diseases of the circulatory system; Z82.5 Family history of asthma and other chronic lower respiratory diseases; Z83.3 Family history of diabetes mellitus; Z85.828 Personal history of other malignant neoplasm of skin; Z86.711 Personal history of pulmonary embolism; Z88.8 Allergy status to other drugs, medicaments and biological substances
CPT/HCPCS: 36415; 71045; 80053; 81001; 81025; 83880; 84443; 84484; 85025; 85379; 85610; 85730; 87086; 87426; 93005; 93306; 94640; 94660; 96365; 96367; 96372; 96375; G0378; J1100; J2543

== ENCOUNTER 2022-12-09 20:42 | Inpatient (IN) | payer MEDICAID ==
[~2022-12-09] VITALS: Ht 170.2 cm; Wt 105.0 kg
[2022-12-09] MEDS: fentaNYL Drip 2500mCg/250mlNS 250 ML IV SCH (01:40)
[~2022-12-09 20:42] MED LIST changes: -ACE3T PO; +AZIT500T66 PO; -BACI1OIN45 EX; -CIPR-173 PO; +CITA10TA8 PO; +GABA-1250 PO; -LORA-1123; -LORA-1123 PO; +LORA-205 PO; -NITR-87 PO; -PAROXETINE HCL 20 MG TABLET; -TRAM-297 PO
[2022-12-09] MEDS ORDERED: ETOMIDATE (2MG/ML) 20ML VIAL IV ONE ×2 (20:55→21:15)
[2022-12-09] MEDS ORDERED: NALOXONE HCL 1MG/ML 2ML SYRINGE IV ONE (20:55)
[2022-12-09] MEDS ORDERED: ROCURONIUM 10MG/ML 10ML VIAL IV ONE ×3 (20:56→23:30)
[2022-12-09] MEDS ORDERED: NALOXONE HCL 1MG/ML 2ML SYRINGE ONE (20:56)
[2022-12-09] MEDS: PROPOFOL 100 ML IV SCH (21:36)
[2022-12-09 21:47] LABS: Basophils # (auto) 0.1 10 ^3/uL (0-0.2); Basophils % (auto) 0.6 % (0.0-2.0); Eosinophils # (auto) 0.5 10 ^3/uL (0-0.8); Eosinophils % (auto) 3.6 % (0.0-7.0); Hematocrit 44.7 % (36.0-46.0); Lymphocytes # (auto) 6.3 10 ^3/uL (0.4-5.4); Mean Corpuscular Hgb Conc. 31.4 g/dL (32.0-36.0); Mean Corpuscular Volume 92.5 fL (80.0-100.0); Monocytes # (auto) 0.9 10 ^3/uL (0-1.3); Monocytes % (auto) 7.5 % (0.0-12.0); Neutrophils # (auto) 4.8 10 ^3/uL (1.6-8.6); Neutrophils % (auto) 38.3 % (37.0-80.0); Nucleated Red Blood Cells % 0.3 %; Red Blood Cells 4.83 10^6/uL (4.0-5.20); Red Cell Distribution Width 17.8 % (11.8-14.3); White Blood Cell 12.5 10^3/uL (4.4-10.8)
[2022-12-09 22:03] LABS: Alanine Aminotransferase 46 U/L (7-40); Albumin 4.7 g/dL (3.2-4.8); Alkaline Phosphatase 115 U/L (46-116); Anion Gap 7 (5-15); Aspartate Aminotransferase 51 U/L (13-40); BUN/Creatinine Ratio 8.5 (10.0-20.0); Blood Urea Nitrogen 8 mg/dL (9-23); Carbon Dioxide 27 mmol/L (20-30); Chloride 112 mmol/L (98-107); Glucose 105 mg/dL (74-106); Potassium 3.8 mmol/L (3.5-5.1); Sodium 146 mmol/L (136-145)
[2022-12-09 22:04] LABS: Bilirubin, Total 0.2 mg/dL (0.2-1.0); Total Protein 7.7 g/dL (5.7-8.2)
[2022-12-09 22:20] VITALS: BP 133/93; PULSE 121; RESP 16; O2SAT 100
[2022-12-09 22:26] LABS: Blood Alcohol 458.3 mg/dL (<10)
[2022-12-09] MEDS ORDERED: NITROGLYCERIN 0.4 MG SL TAB SL PRN (22:45)
[2022-12-09] MEDS ORDERED: ONDANSETRON HCL 4 MG/2 ML VIAL IV PRN (22:45)
[2022-12-09] MEDS ORDERED: HYDROcodone-ACET 5/325MG TAB PO PRN (22:45)
[2022-12-09] MEDS ORDERED: SODIUM CHLORIDE 0.9% 1,000 ML IV ONE (22:45)
[2022-12-09] MEDS ORDERED: MORPHINE SULFATE INJ 2 MG/ml SYRG IV PRN (22:45)
[2022-12-09 23:01] LABS: Base Excess -7.7 mmol/L (-2.0-2.0)
[2022-12-10] VITALS (70 sets, daily range): BP systolic 87–182; BP diastolic 46–96; PULSE 78–134; RESP 7–20; TEMP 98.2–101.5; O2SAT 92–100
[2022-12-10] MEDS ORDERED: SODIUM CHLORIDE 0.9% 2,000 ML IV ONE (01:45)
[2022-12-10] MEDS: PROPOFOL 100 ML IV SCH ×6 (03:40→22:43)
[2022-12-10] MEDS ORDERED: GABAPENTIN 300 MG CAP PO SCH (06:00)
[2022-12-10 06:40] LABS: Alanine Aminotransferase 43 U/L (7-40); Albumin 3.8 g/dL (3.2-4.8); Alkaline Phosphatase 85 U/L (46-116); Anion Gap 9 (5-15); Aspartate Aminotransferase 56 U/L (13-40); BUN/Creatinine Ratio 7.5 (10.0-20.0); Blood Urea Nitrogen 5 mg/dL (9-23); Calcium 7.7 mg/dL (8.5-10.1); Carbon Dioxide 23 mmol/L (20-30); Chloride 116 mmol/L (98-107); Glucose 103 mg/dL (74-106); Potassium 3.7 mmol/L (3.5-5.1); Sodium 148 mmol/L (136-145)
[2022-12-10 06:41] LABS: Bilirubin, Total 0.2 mg/dL (0.2-1.0); Total Protein 6.4 g/dL (5.7-8.2)
[2022-12-10 07:02] LABS: Basophils # (auto) 0 10 ^3/uL (0-0.2); Basophils % (auto) 0.5 % (0.0-2.0); Eosinophils # (auto) 0.1 10 ^3/uL (0-0.8); Eosinophils % (auto) 1.9 % (0.0-7.0); Hematocrit 38.7 % (36.0-46.0); Lymphocytes # (auto) 2.1 10 ^3/uL (0.4-5.4); Lymphocytes % (auto) 28.3 % (10.0-50.0); Mean Corpuscular Hemoglobin 28.7 pg (28.0-32.0); Mean Corpuscular Hgb Conc. 31.1 g/dL (32.0-36.0); Mean Corpuscular Volume 92.3 fL (80.0-100.0); Monocytes # (auto) 0.4 10 ^3/uL (0-1.3); Monocytes % (auto) 5.7 % (0.0-12.0); Neutrophils # (auto) 4.7 10 ^3/uL (1.6-8.6); Neutrophils % (auto) 63.6 % (37.0-80.0); Red Blood Cells 4.19 10^6/uL (4.0-5.20); Red Cell Distribution Width 17.8 % (11.8-14.3); White Blood Cell 7.4 10^3/uL (4.4-10.8)
[2022-12-10 08:16] LABS: Base Excess -4.1 mmol/L (-2.0-2.0)
[2022-12-10] MEDS ORDERED: ENOXAPARIN SOD 40 MG/0.4 ML SYRINGE SC SCH (10:00)
[2022-12-10] MEDS ORDERED: DEXTROSE (50%) 50ML SYRG IV PRN (13:45)
[2022-12-10] MEDS: FOLIC ACID 1 MG, MULTIPLE VITAMIN 10 ML, MAGNESIUM SULF SDV 50% 8 MEQ, THIAMINE INJ 100... INJ SCH ×5 (14:08)
[2022-12-10] MEDS: D5W/SOD CHL 0.45% 1,000 ML IV SCH ×2 (14:20→22:20)
[2022-12-10] MEDS: PANTOPRAZOLE 40 MG/10 ML VIAL INJ IV SCH (14:23)
[2022-12-10 14:37] LABS: Urine WBC None Seen /hpf (0 - 5)
[2022-12-10 14:55] LABS: Amphetamine Screen, Urine Neg (NEGATIVE); Barbiturate Scree,Urine Neg (NEGATIVE); Benzodiazephine Screen, Urine Neg (NEGATIVE); Cannabinoid Screen, Urine Neg (NEGATIVE); Cocaine Screen, Urine Neg (NEGATIVE); Opiate Scree,Urine Neg (NEGATIVE); Phencyclidine Screen, Urine Neg (NEGATIVE)
[2022-12-10 15:01] LABS: Urine Bacteria NONE SEEN /hpf (None Seen); Urine Blood 2+ /uL (Negative); Urine Clarity CLOUDY (Clear); Urine Color Yellow (Yellow); Urine Hyaline Cast FEW /lpf (0 - 2); Urine Mucus FEW (None Seen); Urine Protein, UAD TRACE (Negative); Urine Specific Gravity 1.019 (1.001-1.035); Urine Urobilinogen Normal (Negative); Urine pH 5.5 (5.0-8.0)
[2022-12-10] MEDS: InsuLIN REG 1unit/0.01ml Soln (100units/ml) SC SCH ×2 (17:00→22:00)
[2022-12-10] MEDS ORDERED: LORazepam 2MG/ML-1ML VIAL ONE (17:23)
[2022-12-10] MEDS ORDERED: LORazepam 2MG/ML-1ML VIAL IV ONE (17:23)
[2022-12-10] MEDS ORDERED: MIDAZOLAM DRIP 50 mg/50mL 50 ML IV ONE (17:23)
[2022-12-10] MEDS ORDERED: MIDAZOLAM HCL 5 MG/ML-1ML VIAL ONE (17:45)
[2022-12-10] MEDS: ACCU-CHEK COMFORT CURVE STRIP VI SCH ×2 (17:45→22:20)
[2022-12-10] MEDS ORDERED: MIDAZOLAM HCL 5 MG/ML-1ML VIAL IV ONE (17:45)
[2022-12-10] MEDS: MIDAZOLAM DRIP 50 mg/50mL 50 ML IV SCH ×2 (17:53→20:42)
[2022-12-10] MEDS ORDERED: LORazepam 2MG/ML-1ML VIAL IV PRN ×2 (18:00→22:00)
[2022-12-10] MEDS: ACETAMINOPHEN 325 MG TAB PO PRN (18:26)
[2022-12-10] MEDS: fentaNYL Drip 2500mCg/250mlNS 250 ML IV SCH (18:46)
[2022-12-10] MEDS: ROCURONIUM 10MG/ML 10ML VIAL IV ONE ×2 (19:01→19:05)
[2022-12-10] MEDS: ROCURONIUM 10MG/ML 10ML VIAL IV PRN ×2 (19:05→20:35)
[2022-12-10] MEDS ORDERED: ALBUTEROL MEDNEB 2.5 mg/3ml NEB ONE (20:23)
[2022-12-10] MEDS ORDERED: METOPROLOL TARTRATE 1MG/1ML-5ML VIAL IV ONE (21:15)
[2022-12-10] MEDS ORDERED: HEPARIN DRIP/D5W 100UNITS/ML 250 ML IV SCH (21:15)
[2022-12-10] MEDS ORDERED: HEPARIN SODIUM (PORCINE) 5000 UNITS/ML 1ML VIAL IV ONE (21:15)
[2022-12-10 21:52] LABS: Basophils # (auto) 0 10 ^3/uL (0-0.2); Basophils % (auto) 0.4 % (0.0-2.0); Eosinophils # (auto) 0.1 10 ^3/uL (0-0.8); Eosinophils % (auto) 1.3 % (0.0-7.0); Hematocrit 38.7 % (36.0-46.0); Hemoglobin 12.1 g/dL (12.2-16.2); Lymphocytes # (auto) 1.8 10 ^3/uL (0.4-5.4); Lymphocytes % (auto) 17.1 % (10.0-50.0); Mean Corpuscular Hemoglobin 29.2 pg (28.0-32.0); Mean Corpuscular Hgb Conc. 31.2 g/dL (32.0-36.0); Mean Corpuscular Volume 93.5 fL (80.0-100.0); Monocytes # (auto) 0.7 10 ^3/uL (0-1.3); Monocytes % (auto) 6.8 % (0.0-12.0); Neutrophils # (auto) 7.6 10 ^3/uL (1.6-8.6); Neutrophils % (auto) 74.4 % (37.0-80.0); Red Blood Cells 4.14 10^6/uL (4.0-5.20); Red Cell Distribution Width 17.6 % (11.8-14.3); White Blood Cell 10.3 10^3/uL (4.4-10.8)
[2022-12-10 22:28] LABS: INR 1.03 (0.9-1.15); Partial Thromboplastin Time 27.5 SEC (24.5-34.5); Prothrombin Time 10.8 sec (9.3-11.8)
[2022-12-11] VITALS (111 sets, daily range): BP systolic 83–169; BP diastolic 38–98; PULSE 69–118; RESP 13–19; TEMP 97.9–100.5; O2SAT 94–100
[2022-12-11] MEDS: MIDAZOLAM DRIP 50 mg/50mL 50 ML IV SCH ×6 (00:19→21:39)
[2022-12-11] MEDS: ACETAMINOPHEN 325 MG TAB PO PRN (00:43)
[2022-12-11] MEDS: NOREPINEPHRINE 8 MG/250ML KIT 250 ML IV SCH ×2 (01:45→14:22)
[2022-12-11] MEDS: PROPOFOL 100 ML IV SCH ×6 (01:54→23:31)
[2022-12-11 04:42] LABS: INR 1.06 (0.9-1.15); Prothrombin Time 11.1 sec (9.3-11.8)
[2022-12-11 04:58] LABS: Partial Thromboplastin Time 77.9 SEC (24.5-34.5)
[2022-12-11] MEDS ORDERED: HEPARIN DRIP/D5W 100UNITS/ML 250 ML IV SCH ×2 (05:45→13:30)
[2022-12-11] MEDS: D5W/SOD CHL 0.45% 1,000 ML IV SCH ×2 (05:57→21:15)
[2022-12-11] MEDS: ACCU-CHEK COMFORT CURVE STRIP VI SCH ×4 (06:43→21:39)
[2022-12-11] MEDS: InsuLIN REG 1unit/0.01ml Soln (100units/ml) SC SCH ×4 (06:45→21:40)
[2022-12-11] MEDS: fentaNYL Drip 2500mCg/250mlNS 250 ML IV SCH ×2 (08:51→23:35)
[2022-12-11 08:57] LABS: Base Excess -6.3 mmol/L (-2.0-2.0)
[2022-12-11 09:15] LABS: Chloride 108 mmol/L (98-107); Potassium 3.6 mmol/L (3.5-5.1); Sodium 139 mmol/L (136-145)
[2022-12-11 09:16] LABS: Anion Gap 8 (5-15); Carbon Dioxide 23 mmol/L (20-30)
[2022-12-11 09:17] LABS: Calcium 7.5 mg/dL (8.7-10.4)
[2022-12-11 09:20] LABS: Basophils # (auto) 0.1 10 ^3/uL (0-0.2); Eosinophils # (auto) 0.1 10 ^3/uL (0-0.8); Lymphocytes # (auto) 1.1 10 ^3/uL (0.4-5.4); Mean Corpuscular Hgb Conc. 30.7 g/dL (32.0-36.0); Monocytes # (auto) 0.8 10 ^3/uL (0-1.3); Neutrophils # (auto) 9.9 10 ^3/uL (1.6-8.6)
[2022-12-11 09:21] LABS: BUN/Creatinine Ratio 10.2 (10.0-20.0); Blood Urea Nitrogen 10 mg/dL (9-23); Glucose 235 mg/dL (74-106)
[2022-12-11] MEDS: PANTOPRAZOLE 40 MG/10 ML VIAL INJ IV SCH (10:14)
[2022-12-11 10:21] LABS: Basophils % (auto) 0.7 % (0.0-2.0); Eosinophils % (auto) 0.5 % (0.0-7.0); Hematocrit 38.2 % (36.0-46.0); Hemoglobin 11.7 g/dL (12.2-16.2); Lymphocytes % (auto) 9.4 % (10.0-50.0); Mean Corpuscular Hemoglobin 28.8 pg (28.0-32.0); Mean Corpuscular Volume 93.7 fL (80.0-100.0); Monocytes % (auto) 6.9 % (0.0-12.0); Neutrophils % (auto) 82.5 % (37.0-80.0); Nucleated Red Blood Cells % 0.2 %; Red Blood Cells 4.08 10^6/uL (4.0-5.20); Red Cell Distribution Width 18.1 % (11.8-14.3)
[2022-12-11 11:25] LABS: Platelet Estimate Adequate
[2022-12-11 12:25] LABS: INR 1.08 (0.9-1.15); Prothrombin Time 11.3 sec (9.3-11.8)
[2022-12-11] MEDS: FOLIC ACID 1 MG, MULTIPLE VITAMIN 10 ML, MAGNESIUM SULF SDV 50% 8 MEQ, THIAMINE INJ 100... INJ SCH ×5 (12:59)
[2022-12-11 13:07] LABS: Partial Thromboplastin Time 80.3 SEC (24.5-34.5)
[2022-12-11] MEDS ORDERED: PROPOFOL 0 ML IV ONE (13:15)
[2022-12-11] MEDS: chlordiazePOXIDE HCL 25 MG CAP NG SCH ×3 (18:09→23:46)
[2022-12-12] VITALS (111 sets, daily range): BP systolic 87–153; BP diastolic 36–97; PULSE 59–113; RESP 8–18; TEMP 97.3–100.6; O2SAT 90–100
[2022-12-12] MEDS: NOREPINEPHRINE 8 MG/250ML KIT 250 ML IV SCH (01:45)
[2022-12-12] MEDS: MIDAZOLAM DRIP 50 mg/50mL 50 ML IV SCH ×3 (01:53→22:00)
[2022-12-12] MEDS: chlordiazePOXIDE HCL 25 MG CAP NG SCH ×3 (05:48→17:16)
[2022-12-12] MEDS: D5W/SOD CHL 0.45% 1,000 ML IV SCH ×3 (05:49→21:40)
[2022-12-12] MEDS: ACCU-CHEK COMFORT CURVE STRIP VI SCH ×4 (06:17→21:39)
[2022-12-12] MEDS: InsuLIN REG 1unit/0.01ml Soln (100units/ml) SC SCH ×4 (06:18→21:39)
[2022-12-12 07:08] LABS: Base Excess -2.1 mmol/L (-2.0-2.0)
[2022-12-12] MEDS: PANTOPRAZOLE 40 MG/10 ML VIAL INJ IV SCH (08:12)
[2022-12-12] MEDS: PROPOFOL 100 ML IV SCH (08:12)
[2022-12-12] MEDS: ENOXAPARIN SOD 40 MG/0.4 ML SYRINGE SC SCH (08:13)
[2022-12-12] MEDS: fentaNYL Drip 2500mCg/250mlNS 250 ML IV SCH (08:14)
[2022-12-12 08:40] LABS: Basophils # (auto) 0 10 ^3/uL (0-0.2); Basophils % (auto) 0.6 % (0.0-2.0); Eosinophils # (auto) 0.3 10 ^3/uL (0-0.8); Eosinophils % (auto) 4.5 % (0.0-7.0); Hematocrit 34.3 % (36.0-46.0); Hemoglobin 10.9 g/dL (12.2-16.2); Lymphocytes # (auto) 1.1 10 ^3/uL (0.4-5.4); Lymphocytes % (auto) 16.2 % (10.0-50.0); Mean Corpuscular Hemoglobin 29.2 pg (28.0-32.0); Mean Corpuscular Hgb Conc. 31.8 g/dL (32.0-36.0); Mean Corpuscular Volume 91.8 fL (80.0-100.0); Monocytes # (auto) 0.5 10 ^3/uL (0-1.3); Monocytes % (auto) 7.1 % (0.0-12.0); Neutrophils # (auto) 4.8 10 ^3/uL (1.6-8.6); Neutrophils % (auto) 71.6 % (37.0-80.0); Nucleated Red Blood Cells % 0.1 %; Red Blood Cells 3.74 10^6/uL (4.0-5.20); Red Cell Distribution Width 17.3 % (11.8-14.3); White Blood Cell 6.8 10^3/uL (4.4-10.8)
[2022-12-12 09:32] LABS: Alanine Aminotransferase 34 U/L (7-40); Albumin 3.4 g/dL (3.2-4.8); Alkaline Phosphatase 87 U/L (46-116); Anion Gap 6 (5-15); Aspartate Aminotransferase 74 U/L (13-40); Bilirubin, Total 0.3 mg/dL (0.2-1.0); Calcium 8.1 mg/dL (8.5-10.1); Carbon Dioxide 27 mmol/L (20-30); Chloride 109 mmol/L (98-107); Glucose 126 mg/dL (74-106); Potassium 3.6 mmol/L (3.5-5.1); Sodium 142 mmol/L (136-145); Total Protein 5.6 g/dL (5.7-8.2)
[2022-12-12 09:42] LABS: BUN/Creatinine Ratio 8.5 (10.0-20.0); Blood Urea Nitrogen < 5 mg/dL (9-23)
[2022-12-12] MEDS: FOLIC ACID 1 MG, MULTIPLE VITAMIN 10 ML, MAGNESIUM SULF SDV 50% 8 MEQ, THIAMINE INJ 100... INJ SCH ×5 (12:51)
[2022-12-12] MEDS: Jevity 1.2 Cal/Fiber 1 Liter GT SCH (12:53)
[2022-12-12 13:24] LABS: INR 1.06 (0.9-1.15); Prothrombin Time 11.1 sec (9.3-11.8)
[2022-12-12] MEDS ORDERED: LIDOCAINE 1% (LOCAL ANESTH.) PF 5ml SDV ID ONE (17:00)
[2022-12-12] MEDS: ROCURONIUM 10MG/ML 10ML VIAL IV PRN (17:10)
[2022-12-12] MEDS: SODIUM CHLOR 0.9% PF (SALINE LOCK) 10ML VIAL/SYR IV SCH (21:39)
[2022-12-13] VITALS (99 sets, daily range): BP systolic 75–154; BP diastolic 39–95; PULSE 56–108; RESP 12–28; TEMP 97–101.1; O2SAT 92–100
[2022-12-13] MEDS: chlordiazePOXIDE HCL 25 MG CAP NG SCH ×4 (00:06→18:36)
[2022-12-13] MEDS: NOREPINEPHRINE 8 MG/250ML KIT 250 ML IV SCH (01:45)
[2022-12-13 04:09] LABS: Basophils # (auto) 0.1 10 ^3/uL (0-0.2); Basophils % (auto) 0.8 % (0.0-2.0); Eosinophils # (auto) 0.4 10 ^3/uL (0-0.8); Eosinophils % (auto) 4.7 % (0.0-7.0); Hematocrit 33.9 % (36.0-46.0); Hemoglobin 10.9 g/dL (12.2-16.2); Lymphocytes # (auto) 1.3 10 ^3/uL (0.4-5.4); Lymphocytes % (auto) 16.7 % (10.0-50.0); Mean Corpuscular Hemoglobin 29.4 pg (28.0-32.0); Mean Corpuscular Hgb Conc. 32.2 g/dL (32.0-36.0); Mean Corpuscular Volume 91.5 fL (80.0-100.0); Monocytes # (auto) 0.6 10 ^3/uL (0-1.3); Monocytes % (auto) 7.6 % (0.0-12.0); Neutrophils # (auto) 5.5 10 ^3/uL (1.6-8.6); Neutrophils % (auto) 70.2 % (37.0-80.0); Red Blood Cells 3.71 10^6/uL (4.0-5.20); Red Cell Distribution Width 17.4 % (11.8-14.3); White Blood Cell 7.8 10^3/uL (4.4-10.8)
[2022-12-13 04:38] LABS: Alanine Aminotransferase 31 U/L (7-40); Albumin 3.4 g/dL (3.2-4.8); Alkaline Phosphatase 93 U/L (46-116); Anion Gap 6 (5-15); Aspartate Aminotransferase 54 U/L (13-40); Calcium 8.4 mg/dL (8.7-10.4); Carbon Dioxide 27 mmol/L (20-30); Chloride 110 mmol/L (98-107); Glucose 122 mg/dL (74-106); Magnesium 2.2 mg/dL (1.6-2.6); Potassium 3.2 mmol/L (3.5-5.1); Sodium 143 mmol/L (136-145)
[2022-12-13 04:39] LABS: Bilirubin, Total 0.3 mg/dL (0.2-1.0); Phosphorus 2.2 mg/dL (2.4-5.1); Total Protein 5.7 g/dL (5.7-8.2)
[2022-12-13 04:50] LABS: BUN/Creatinine Ratio 8.9 (10.0-20.0); Blood Urea Nitrogen < 5 mg/dL (9-23)
[2022-12-13] MEDS ORDERED: POTASSIUM CHL 20MEQ/100ML 100 ML IV ONE (05:15)
[2022-12-13] MEDS: PROPOFOL 100 ML IV SCH ×2 (06:12→11:35)
[2022-12-13] MEDS: InsuLIN REG 1unit/0.01ml Soln (100units/ml) SC SCH ×4 (06:13→22:00)
[2022-12-13] MEDS: ACCU-CHEK COMFORT CURVE STRIP VI SCH ×4 (06:13→22:06)
[2022-12-13] MEDS: fentaNYL Drip 2500mCg/250mlNS 250 ML IV SCH (06:15)
[2022-12-13] MEDS: D5W/SOD CHL 0.45% 1,000 ML IV SCH ×2 (06:17→13:15)
[2022-12-13 09:31] LABS: Base Excess -2.4 mmol/L (-2.0-2.0)
[2022-12-13] MEDS: PANTOPRAZOLE 40 MG/10 ML VIAL INJ IV SCH (10:33)
[2022-12-13] MEDS: ENOXAPARIN SOD 40 MG/0.4 ML SYRINGE SC SCH (10:33)
[2022-12-13] MEDS: SODIUM CHLOR 0.9% PF (SALINE LOCK) 10ML VIAL/SYR IV SCH ×2 (10:34→22:06)
[2022-12-13] MEDS ORDERED: POTASSIUM PHOSPHATE 22 MEQ in SODIUM CHL 0.9% 100 ML IV ONE (13:30)
[2022-12-13] MEDS: FREE WATER PEG SCH ×3 (15:24→22:06)
[2022-12-13] MEDS: FOLIC ACID 1 MG, MULTIPLE VITAMIN 10 ML, MAGNESIUM SULF SDV 50% 8 MEQ, THIAMINE INJ 100... INJ SCH ×5 (15:35)
[2022-12-13] MEDS ORDERED: FUROSEMIDE 20 MG/2 ML VIAL IV ONE (18:00)
[2022-12-13] MEDS: PIPERACILLIN-TAZOB 3.375GM 100 ML IV SCH (18:37)
[2022-12-13] MEDS: ACETAMINOPHEN 325 MG TAB PO PRN (22:05)
[2022-12-13] MEDS: DOCUSATE ORAL LIQUID 100 MG/10 ML UD GT SCH (22:06)
[2022-12-14] VITALS (94 sets, daily range): BP systolic 94–169; BP diastolic 53–111; PULSE 60–106; RESP 8–25; TEMP 96.6–99.5; O2SAT 94–100
[2022-12-14 01:18] LABS: Basophils # (auto) 0 10 ^3/uL (0-0.2); Basophils % (auto) 0.6 % (0.0-2.0); Eosinophils # (auto) 0.2 10 ^3/uL (0-0.8); Eosinophils % (auto) 2.6 % (0.0-7.0); Hematocrit 35.1 % (36.0-46.0); Hemoglobin 11.2 g/dL (12.2-16.2); Lymphocytes # (auto) 1.1 10 ^3/uL (0.4-5.4); Lymphocytes % (auto) 14.4 % (10.0-50.0); Mean Corpuscular Hemoglobin 28.9 pg (28.0-32.0); Mean Corpuscular Hgb Conc. 31.9 g/dL (32.0-36.0); Mean Corpuscular Volume 90.6 fL (80.0-100.0); Monocytes # (auto) 0.7 10 ^3/uL (0-1.3); Monocytes % (auto) 8.7 % (0.0-12.0); Neutrophils # (auto) 5.6 10 ^3/uL (1.6-8.6); Neutrophils % (auto) 73.7 % (37.0-80.0); Nucleated Red Blood Cells % 0.1 %; Red Blood Cells 3.87 10^6/uL (4.0-5.20); White Blood Cell 7.6 10^3/uL (4.4-10.8)
[2022-12-14] MEDS: FREE WATER PEG SCH ×6 (01:26→21:27)
[2022-12-14] MEDS: NOREPINEPHRINE 8 MG/250ML KIT 250 ML IV SCH (01:45)
[2022-12-14 02:51] LABS: Alanine Aminotransferase 30 U/L (7-40); Albumin 3.6 g/dL (3.2-4.8); Alkaline Phosphatase 90 U/L (46-116); Anion Gap 5 (5-15); Aspartate Aminotransferase 39 U/L (13-40); Calcium 8.6 mg/dL (8.5-10.1); Carbon Dioxide 31 mmol/L (20-30); Chloride 105 mmol/L (98-107); Glucose 117 mg/dL (74-106); Potassium 3.6 mmol/L (3.5-5.1); Sodium 141 mmol/L (136-145)
[2022-12-14 02:52] LABS: Bilirubin, Total 0.3 mg/dL (0.2-1.0); Phosphorus 3.4 mg/dL (2.4-5.1)
[2022-12-14 03:10] LABS: BUN/Creatinine Ratio 9.4 (10.0-20.0); Blood Urea Nitrogen < 5 mg/dL (9-23)
[2022-12-14 04:38] LABS: Magnesium 2.1 mg/dL (1.6-2.6)
[2022-12-14] MEDS: PROPOFOL 100 ML IV SCH ×3 (05:42→18:05)
[2022-12-14] MEDS: PIPERACILLIN-TAZOB 3.375GM 100 ML IV SCH ×4 (06:00→18:07)
[2022-12-14] MEDS: chlordiazePOXIDE HCL 25 MG CAP NG SCH ×4 (06:00→18:05)
[2022-12-14] MEDS: ACCU-CHEK COMFORT CURVE STRIP VI SCH ×4 (06:36→21:27)
[2022-12-14] MEDS: InsuLIN REG 1unit/0.01ml Soln (100units/ml) SC SCH ×4 (06:37→21:27)
[2022-12-14] MEDS ORDERED: DEXA0.5E4 PO (09:41)
[2022-12-14] MEDS ORDERED: ACET500T58 PO (09:55)
[2022-12-14] MEDS ORDERED: CLIN300C70 PO (09:55)
[2022-12-14] MEDS ORDERED: NAP500T PO (09:55)
[2022-12-14] MEDS ORDERED: CITA-73 PO (09:55)
[2022-12-14] MEDS ORDERED: HYDR1SYP3 PO (09:55)
[2022-12-14] MEDS ORDERED: GABA-1250 PO (09:55)
[2022-12-14] MEDS: DOCUSATE ORAL LIQUID 100 MG/10 ML UD GT SCH ×2 (10:17→21:26)
[2022-12-14] MEDS: PANTOPRAZOLE 40 MG/10 ML VIAL INJ IV SCH (10:17)
[2022-12-14] MEDS: SODIUM CHLOR 0.9% PF (SALINE LOCK) 10ML VIAL/SYR IV SCH ×2 (10:17→21:26)
[2022-12-14] MEDS: ENOXAPARIN SOD 40 MG/0.4 ML SYRINGE SC SCH (12:44)
[2022-12-14] MEDS: FOLIC ACID 1 MG, MULTIPLE VITAMIN 10 ML, MAGNESIUM SULF SDV 50% 8 MEQ, THIAMINE INJ 100... INJ SCH ×5 (13:23)
[2022-12-14] MEDS: MIDAZOLAM DRIP 50 mg/50mL 50 ML IV SCH (17:30)
[2022-12-14] MEDS: fentaNYL Drip 2500mCg/250mlNS 250 ML IV SCH (23:30)
[2022-12-15] VITALS (72 sets, daily range): BP systolic 88–138; BP diastolic 40–100; PULSE 64–104; RESP 11–20; TEMP 91.6–99.3; O2SAT 90–100
[2022-12-15] MEDS: PIPERACILLIN-TAZOB 3.375GM 100 ML IV SCH ×4 (00:10→17:53)
[2022-12-15] MEDS: chlordiazePOXIDE HCL 25 MG CAP NG SCH ×4 (00:10→17:53)
[2022-12-15] MEDS: NOREPINEPHRINE 8 MG/250ML KIT 250 ML IV SCH (00:11)
[2022-12-15 01:20] LABS: Basophils # (auto) 0 10 ^3/uL (0-0.2); Basophils % (auto) 0.7 % (0.0-2.0); Eosinophils # (auto) 0.3 10 ^3/uL (0-0.8); Eosinophils % (auto) 4.5 % (0.0-7.0); Hematocrit 36.4 % (36.0-46.0); Hemoglobin 11.6 g/dL (12.2-16.2); Lymphocytes # (auto) 1.3 10 ^3/uL (0.4-5.4); Lymphocytes % (auto) 17.4 % (10.0-50.0); Mean Corpuscular Hemoglobin 28.8 pg (28.0-32.0); Mean Corpuscular Hgb Conc. 31.9 g/dL (32.0-36.0); Mean Corpuscular Volume 90.4 fL (80.0-100.0); Monocytes # (auto) 0.8 10 ^3/uL (0-1.3); Monocytes % (auto) 10.3 % (0.0-12.0); Neutrophils # (auto) 4.9 10 ^3/uL (1.6-8.6); Neutrophils % (auto) 67.1 % (37.0-80.0); Nucleated Red Blood Cells % 0.1 %; Red Blood Cells 4.03 10^6/uL (4.0-5.20); Red Cell Distribution Width 17.1 % (11.8-14.3); White Blood Cell 7.3 10^3/uL (4.4-10.8)
[2022-12-15] MEDS: ROCURONIUM 10MG/ML 10ML VIAL IV PRN (01:20)
[2022-12-15 01:24] LABS: Alanine Aminotransferase 24 U/L (7-40); Albumin 3.8 g/dL (3.2-4.8); Alkaline Phosphatase 98 U/L (46-116); Anion Gap 5 (5-15); Aspartate Aminotransferase 26 U/L (13-40); Calcium 8.7 mg/dL (8.7-10.4); Carbon Dioxide 32 mmol/L (20-30); Chloride 102 mmol/L (98-107); Glucose 95 mg/dL (74-106); Magnesium 2.1 mg/dL (1.6-2.6); Potassium 3.6 mmol/L (3.5-5.1); Sodium 139 mmol/L (136-145)
[2022-12-15 01:25] LABS: Bilirubin, Total 0.4 mg/dL (0.2-1.0); Total Protein 6.4 g/dL (5.7-8.2)
[2022-12-15 01:34] LABS: BUN/Creatinine Ratio 9.4 (10.0-20.0); Blood Urea Nitrogen < 5 mg/dL (9-23)
[2022-12-15] MEDS: FREE WATER PEG SCH ×6 (01:55→21:10)
[2022-12-15] MEDS: ACCU-CHEK COMFORT CURVE STRIP VI SCH ×4 (06:09→21:10)
[2022-12-15] MEDS: InsuLIN REG 1unit/0.01ml Soln (100units/ml) SC SCH ×4 (06:09→21:47)
[2022-12-15 07:19] LABS: Base Excess 3.1 mmol/L (-2.0-2.0)
[2022-12-15] MEDS: PROPOFOL 100 ML IV SCH ×3 (09:16→18:25)
[2022-12-15] MEDS: PANTOPRAZOLE 40 MG/10 ML VIAL INJ IV SCH (09:35)
[2022-12-15] MEDS: ENOXAPARIN SOD 40 MG/0.4 ML SYRINGE SC SCH (09:35)
[2022-12-15] MEDS: DOCUSATE ORAL LIQUID 100 MG/10 ML UD GT SCH ×2 (09:35→21:48)
[2022-12-15] MEDS: SODIUM CHLOR 0.9% PF (SALINE LOCK) 10ML VIAL/SYR IV SCH ×2 (10:31→21:10)
[2022-12-15] MEDS: MIDAZOLAM DRIP 50 mg/50mL 50 ML IV SCH ×2 (10:32→18:26)
[2022-12-15] MEDS ORDERED: ARTIFICIAL TEARS 15ml EACHEYE PRN (12:00)
[2022-12-15] MEDS: FOLIC ACID 1 MG, MULTIPLE VITAMIN 10 ML, MAGNESIUM SULF SDV 50% 8 MEQ, THIAMINE INJ 100... INJ SCH ×5 (13:12)
[2022-12-15] MEDS: Jevity 1.2 Cal/Fiber 1 Liter GT SCH (17:57)
[2022-12-15] MEDS: fentaNYL Drip 2500mCg/250mlNS 250 ML IV SCH (23:30)
[2022-12-16] VITALS (88 sets, daily range): BP systolic 83–134; BP diastolic 40–85; PULSE 62–101; RESP 13–19; TEMP 96.8–99.3; O2SAT 92–100
[2022-12-16] MEDS: chlordiazePOXIDE HCL 25 MG CAP NG SCH ×4 (00:13→17:56)
[2022-12-16] MEDS: PIPERACILLIN-TAZOB 3.375GM 100 ML IV SCH ×4 (00:13→17:57)
[2022-12-16] MEDS: NOREPINEPHRINE 8 MG/250ML KIT 250 ML IV SCH ×2 (01:45→12:08)
[2022-12-16] MEDS: FREE WATER PEG SCH ×6 (01:54→21:10)
[2022-12-16] MEDS: ROCURONIUM 10MG/ML 10ML VIAL IV PRN (02:16)
[2022-12-16 02:41] LABS: Alanine Aminotransferase 18 U/L (7-40); Albumin 3.6 g/dL (3.2-4.8); Alkaline Phosphatase 91 U/L (46-116); Anion Gap 5 (5-15); Aspartate Aminotransferase 21 U/L (13-40); BUN/Creatinine Ratio 13.2 (10.0-20.0); Bilirubin, Total 0.2 mg/dL (0.2-1.0); Blood Urea Nitrogen 7 mg/dL (9-23); Calcium 8.9 mg/dL (8.7-10.4); Carbon Dioxide 33 mmol/L (20-30); Chloride 101 mmol/L (98-107); Glucose 113 mg/dL (74-106); Magnesium 2.1 mg/dL (1.6-2.6); Potassium 3.6 mmol/L (3.5-5.1); Sodium 139 mmol/L (136-145); Total Protein 6.2 g/dL (5.7-8.2)
[2022-12-16 02:45] LABS: Basophils # (auto) 0 10 ^3/uL (0-0.2); Basophils % (auto) 0.6 % (0.0-2.0); Eosinophils # (auto) 0.3 10 ^3/uL (0-0.8); Eosinophils % (auto) 4.8 % (0.0-7.0); Hematocrit 34.9 % (36.0-46.0); Hemoglobin 11.5 g/dL (12.2-16.2); Lymphocytes # (auto) 1.4 10 ^3/uL (0.4-5.4); Lymphocytes % (auto) 20.3 % (10.0-50.0); Mean Corpuscular Hemoglobin 29.5 pg (28.0-32.0); Mean Corpuscular Hgb Conc. 32.9 g/dL (32.0-36.0); Mean Corpuscular Volume 89.7 fL (80.0-100.0); Monocytes # (auto) 0.7 10 ^3/uL (0-1.3); Monocytes % (auto) 9.9 % (0.0-12.0); Neutrophils # (auto) 4.3 10 ^3/uL (1.6-8.6); Neutrophils % (auto) 64.4 % (37.0-80.0); Nucleated Red Blood Cells % 0.1 %; Red Blood Cells 3.89 10^6/uL (4.0-5.20); Red Cell Distribution Width 16.7 % (11.8-14.3); White Blood Cell 6.6 10^3/uL (4.4-10.8)
[2022-12-16] MEDS: ACCU-CHEK COMFORT CURVE STRIP VI SCH ×4 (05:47→21:10)
[2022-12-16] MEDS: InsuLIN REG 1unit/0.01ml Soln (100units/ml) SC SCH ×4 (06:14→21:10)
[2022-12-16 07:53] LABS: Base Excess 5.4 mmol/L (-2.0-2.0)
[2022-12-16] MEDS: MIDAZOLAM DRIP 50 mg/50mL 50 ML IV SCH ×2 (08:18→15:10)
[2022-12-16] MEDS ORDERED: FUROSEMIDE 20 MG/2 ML VIAL IV ONE (09:30)
[2022-12-16] MEDS: PANTOPRAZOLE 40 MG/10 ML VIAL INJ IV SCH (09:50)
[2022-12-16] MEDS: DOCUSATE ORAL LIQUID 100 MG/10 ML UD GT SCH ×2 (09:54→21:09)
[2022-12-16] MEDS: ENOXAPARIN SOD 40 MG/0.4 ML SYRINGE SC SCH (09:54)
[2022-12-16] MEDS: CITALOPRAM HYDROBR 20 MG TAB PO SCH (09:55)
[2022-12-16] MEDS: SODIUM CHLOR 0.9% PF (SALINE LOCK) 10ML VIAL/SYR IV SCH ×2 (09:55→21:10)
[2022-12-16] MEDS: PROPOFOL 100 ML IV SCH ×4 (10:32→21:45)
[2022-12-16] MEDS: FOLIC ACID 1 MG, MULTIPLE VITAMIN 10 ML, MAGNESIUM SULF SDV 50% 8 MEQ, THIAMINE INJ 100... INJ SCH ×5 (12:35)
[2022-12-16] MEDS: Jevity 1.2 Cal/Fiber 1 Liter GT SCH (17:14)
[2022-12-16] MEDS: fentaNYL Drip 2500mCg/250mlNS 250 ML IV SCH (23:30)
[2022-12-17] VITALS (100 sets, daily range): BP systolic 92–191; BP diastolic 40–88; PULSE 60–89; RESP 13–22; TEMP 96.4–99.3; O2SAT 92–100
[2022-12-17] MEDS: FREE WATER PEG SCH ×6 (02:00→21:06)
[2022-12-17 02:25] LABS: Basophils # (auto) 0.1 10 ^3/uL (0-0.2); Basophils % (auto) 1.3 % (0.0-2.0); Eosinophils # (auto) 0.4 10 ^3/uL (0-0.8); Eosinophils % (auto) 5.9 % (0.0-7.0); Hematocrit 35.2 % (36.0-46.0); Hemoglobin 11.6 g/dL (12.2-16.2); Lymphocytes # (auto) 1.6 10 ^3/uL (0.4-5.4); Lymphocytes % (auto) 21.8 % (10.0-50.0); Mean Corpuscular Hemoglobin 29.2 pg (28.0-32.0); Mean Corpuscular Hgb Conc. 32.9 g/dL (32.0-36.0); Mean Corpuscular Volume 88.8 fL (80.0-100.0); Monocytes # (auto) 0.7 10 ^3/uL (0-1.3); Neutrophils # (auto) 4.7 10 ^3/uL (1.6-8.6); Nucleated Red Blood Cells % 0.1 %; Red Blood Cells 3.96 10^6/uL (4.0-5.20); Red Cell Distribution Width 16.5 % (11.8-14.3); White Blood Cell 7.5 10^3/uL (4.4-10.8)
[2022-12-17 02:40] LABS: Alanine Aminotransferase 21 U/L (7-40); Albumin 3.9 g/dL (3.2-4.8); Alkaline Phosphatase 93 U/L (46-116); Anion Gap 5 (5-15); Aspartate Aminotransferase 29 U/L (13-40); BUN/Creatinine Ratio 11.3 (10.0-20.0); Blood Urea Nitrogen 6 mg/dL (9-23); Calcium 8.9 mg/dL (8.7-10.4); Carbon Dioxide 32 mmol/L (20-30); Chloride 101 mmol/L (98-107); Glucose 104 mg/dL (74-106); Sodium 138 mmol/L (136-145)
[2022-12-17 02:41] LABS: Bilirubin, Total 0.2 mg/dL (0.2-1.0); Total Protein 6.6 g/dL (5.7-8.2)
[2022-12-17] MEDS: PIPERACILLIN-TAZOB 3.375GM 100 ML IV SCH ×5 (05:33→23:29)
[2022-12-17] MEDS: chlordiazePOXIDE HCL 25 MG CAP NG SCH ×5 (05:33→23:30)
[2022-12-17] MEDS: ACCU-CHEK COMFORT CURVE STRIP VI SCH ×4 (05:43→21:07)
[2022-12-17] MEDS: InsuLIN REG 1unit/0.01ml Soln (100units/ml) SC SCH ×4 (05:43→21:07)
[2022-12-17] MEDS: MIDAZOLAM DRIP 50 mg/50mL 50 ML IV SCH ×3 (07:41→16:21)
[2022-12-17 07:51] LABS: Base Excess 5.9 mmol/L (-2.0-2.0)
[2022-12-17] MEDS: PROPOFOL 100 ML IV SCH ×3 (09:38→16:20)
[2022-12-17] MEDS: DOCUSATE ORAL LIQUID 100 MG/10 ML UD GT SCH ×2 (10:00→21:06)
[2022-12-17] MEDS: PANTOPRAZOLE 40 MG/10 ML VIAL INJ IV SCH (10:40)
[2022-12-17] MEDS: CITALOPRAM HYDROBR 20 MG TAB PO SCH (10:40)
[2022-12-17] MEDS: ENOXAPARIN SOD 40 MG/0.4 ML SYRINGE SC SCH (10:41)
[2022-12-17] MEDS: SODIUM CHLOR 0.9% PF (SALINE LOCK) 10ML VIAL/SYR IV SCH ×2 (10:41→21:06)
[2022-12-17] MEDS: FOLIC ACID 1 MG, MULTIPLE VITAMIN 10 ML, MAGNESIUM SULF SDV 50% 8 MEQ, THIAMINE INJ 100... INJ SCH ×5 (13:23)
[2022-12-17] MEDS: METOCLOPRAMIDE HCL 5MG/ml INJ 2ml VIAL IV SCH (21:06)
[2022-12-17] MEDS: fentaNYL Drip 2500mCg/250mlNS 250 ML IV SCH (23:29)
[2022-12-18] VITALS (98 sets, daily range): BP systolic 90–144; BP diastolic 48–94; PULSE 64–96; RESP 12–20; TEMP 97.2–99.3; O2SAT 90–100
[2022-12-18] MEDS: NOREPINEPHRINE 8 MG/250ML KIT 250 ML IV SCH (01:45)
[2022-12-18 02:02] LABS: Basophils # (auto) 0.1 10 ^3/uL (0-0.2); Basophils % (auto) 1.1 % (0.0-2.0); Eosinophils # (auto) 0.4 10 ^3/uL (0-0.8); Eosinophils % (auto) 5.8 % (0.0-7.0); Hematocrit 35.6 % (36.0-46.0); Hemoglobin 11.7 g/dL (12.2-16.2); Lymphocytes # (auto) 1.4 10 ^3/uL (0.4-5.4); Lymphocytes % (auto) 22.9 % (10.0-50.0); Mean Corpuscular Hemoglobin 29.3 pg (28.0-32.0); Mean Corpuscular Hgb Conc. 32.9 g/dL (32.0-36.0); Mean Corpuscular Volume 89.1 fL (80.0-100.0); Monocytes # (auto) 0.5 10 ^3/uL (0-1.3); Monocytes % (auto) 8.7 % (0.0-12.0); Neutrophils # (auto) 3.8 10 ^3/uL (1.6-8.6); Neutrophils % (auto) 61.5 % (37.0-80.0); Nucleated Red Blood Cells % 0.1 %; Red Blood Cells 3.99 10^6/uL (4.0-5.20); Red Cell Distribution Width 16.6 % (11.8-14.3); White Blood Cell 6.1 10^3/uL (4.4-10.8)
[2022-12-18] MEDS: FREE WATER PEG SCH ×6 (02:07→17:31)
[2022-12-18 02:19] LABS: Alanine Aminotransferase 27 U/L (7-40); Albumin 3.8 g/dL (3.2-4.8); Alkaline Phosphatase 90 U/L (46-116); Anion Gap 6 (5-15); Aspartate Aminotransferase 37 U/L (13-40); Bilirubin, Total 0.3 mg/dL (0.2-1.0); Blood Urea Nitrogen 7 mg/dL (9-23); Calcium 9.1 mg/dL (8.7-10.4); Carbon Dioxide 31 mmol/L (20-30); Chloride 101 mmol/L (98-107); Glucose 95 mg/dL (74-106); Magnesium 2.1 mg/dL (1.6-2.6); Potassium 3.7 mmol/L (3.5-5.1); Sodium 138 mmol/L (136-145); Total Protein 6.5 g/dL (5.7-8.2)
[2022-12-18] MEDS: PIPERACILLIN-TAZOB 3.375GM 100 ML IV SCH ×4 (05:55→23:11)
[2022-12-18] MEDS: METOCLOPRAMIDE HCL 5MG/ml INJ 2ml VIAL IV SCH ×3 (05:55→21:09)
[2022-12-18] MEDS: chlordiazePOXIDE HCL 25 MG CAP NG SCH ×4 (05:56→23:11)
[2022-12-18] MEDS: ACCU-CHEK COMFORT CURVE STRIP VI SCH ×2 (05:56→11:56)
[2022-12-18] MEDS: InsuLIN REG 1unit/0.01ml Soln (100units/ml) SC SCH ×2 (06:03→11:30)
[2022-12-18 07:24] LABS: Base Excess 2.7 mmol/L (-2.0-2.0)
[2022-12-18] MEDS: PROPOFOL 100 ML IV SCH ×4 (08:35→17:58)
[2022-12-18] MEDS: ENOXAPARIN SOD 40 MG/0.4 ML SYRINGE SC SCH (10:15)
[2022-12-18] MEDS: PANTOPRAZOLE 40 MG/10 ML VIAL INJ IV SCH (10:15)
[2022-12-18] MEDS: CITALOPRAM HYDROBR 20 MG TAB PO SCH (10:15)
[2022-12-18] MEDS: SODIUM CHLOR 0.9% PF (SALINE LOCK) 10ML VIAL/SYR IV SCH ×2 (10:15→21:11)
[2022-12-18] MEDS: MIDAZOLAM DRIP 50 mg/50mL 50 ML IV SCH ×3 (10:17→23:28)
[2022-12-18] MEDS: DOCUSATE ORAL LIQUID 100 MG/10 ML UD GT SCH ×2 (10:18→21:09)
[2022-12-18] MEDS: FOLIC ACID 1 MG, MULTIPLE VITAMIN 10 ML, MAGNESIUM SULF SDV 50% 8 MEQ, THIAMINE INJ 100... INJ SCH ×5 (12:15)
[2022-12-18] MEDS: fentaNYL Drip 2500mCg/250mlNS 250 ML IV SCH (23:25)
[2022-12-18] MEDS: ROCURONIUM 10MG/ML 10ML VIAL IV PRN (23:25)
[2022-12-19] VITALS (94 sets, daily range): BP systolic 93–157; BP diastolic 18–104; PULSE 70–101; RESP 11–28; TEMP 97–100.5; O2SAT 92–100
[2022-12-19] MEDS: NOREPINEPHRINE 8 MG/250ML KIT 250 ML IV SCH (01:45)
[2022-12-19] MEDS: ROCURONIUM 10MG/ML 10ML VIAL IV PRN (02:27)
[2022-12-19 02:39] LABS: Basophils # (auto) 0.1 10 ^3/uL (0-0.2); Eosinophils # (auto) 0.3 10 ^3/uL (0-0.8); Eosinophils % (auto) 5.4 % (0.0-7.0); Hematocrit 36.4 % (36.0-46.0); Hemoglobin 11.8 g/dL (12.2-16.2); Lymphocytes # (auto) 1.4 10 ^3/uL (0.4-5.4); Lymphocytes % (auto) 22.8 % (10.0-50.0); Mean Corpuscular Hemoglobin 29.1 pg (28.0-32.0); Mean Corpuscular Hgb Conc. 32.4 g/dL (32.0-36.0); Mean Corpuscular Volume 89.7 fL (80.0-100.0); Monocytes # (auto) 0.5 10 ^3/uL (0-1.3); Monocytes % (auto) 8.2 % (0.0-12.0); Neutrophils % (auto) 62.6 % (37.0-80.0); Red Blood Cells 4.06 10^6/uL (4.0-5.20); Red Cell Distribution Width 16.3 % (11.8-14.3); White Blood Cell 6.3 10^3/uL (4.4-10.8)
[2022-12-19 02:57] LABS: Alanine Aminotransferase 39 U/L (7-40); Alkaline Phosphatase 95 U/L (46-116); Anion Gap 3 (5-15); Aspartate Aminotransferase 44 U/L (13-40); BUN/Creatinine Ratio 14.5 (10.0-20.0); Blood Urea Nitrogen 8 mg/dL (9-23); Calcium 9.3 mg/dL (8.7-10.4); Carbon Dioxide 32 mmol/L (20-30); Chloride 103 mmol/L (98-107); Glucose 93 mg/dL (74-106); Magnesium 2.1 mg/dL (1.6-2.6); Potassium 4.4 mmol/L (3.5-5.1); Sodium 138 mmol/L (136-145)
[2022-12-19 02:58] LABS: Bilirubin, Total 0.3 mg/dL (0.2-1.0); Total Protein 6.9 g/dL (5.7-8.2)
[2022-12-19] MEDS: fentaNYL Drip 2500mCg/250mlNS 250 ML IV SCH (03:00)
[2022-12-19] MEDS: METOCLOPRAMIDE HCL 5MG/ml INJ 2ml VIAL IV SCH ×3 (05:17→21:46)
[2022-12-19] MEDS: PIPERACILLIN-TAZOB 3.375GM 100 ML IV SCH ×3 (05:18→21:48)
[2022-12-19] MEDS: FREE WATER PEG SCH ×3 (05:18→17:33)
[2022-12-19] MEDS: chlordiazePOXIDE HCL 25 MG CAP NG SCH ×3 (05:18→17:33)
[2022-12-19 07:50] LABS: Base Excess 5.1 mmol/L (-2.0-2.0)
[2022-12-19] MEDS: DOCUSATE ORAL LIQUID 100 MG/10 ML UD GT SCH ×2 (10:15→21:46)
[2022-12-19] MEDS: PANTOPRAZOLE 40 MG/10 ML VIAL INJ IV SCH (10:16)
[2022-12-19] MEDS: CITALOPRAM HYDROBR 20 MG TAB PO SCH (10:16)
[2022-12-19] MEDS: ENOXAPARIN SOD 40 MG/0.4 ML SYRINGE SC SCH (10:16)
[2022-12-19] MEDS: FOLIC ACID 1 MG, MULTIPLE VITAMIN 10 ML, MAGNESIUM SULF SDV 50% 8 MEQ, THIAMINE INJ 100... INJ SCH ×5 (12:01)
[2022-12-19] MEDS: SODIUM CHLOR 0.9% PF (SALINE LOCK) 10ML VIAL/SYR IV SCH ×2 (12:09→21:46)
[2022-12-19] MEDS: PROPOFOL 100 ML IV SCH ×2 (16:24→21:42)
[2022-12-20] VITALS (103 sets, daily range): BP systolic 115–175; BP diastolic 55–119; PULSE 55–121; RESP 14–27; TEMP 99–100.6; O2SAT 91–99
[2022-12-20] MEDS: chlordiazePOXIDE HCL 25 MG CAP NG SCH ×4 (00:34→17:53)
[2022-12-20] MEDS: ACETAMINOPHEN 325 MG TAB PO PRN (00:35)
[2022-12-20] MEDS: NOREPINEPHRINE 8 MG/250ML KIT 250 ML IV SCH (01:45)
[2022-12-20] MEDS: PROPOFOL 100 ML IV SCH (02:26)
[2022-12-20] MEDS: FREE WATER PEG SCH ×4 (02:26→17:54)
[2022-12-20] MEDS: fentaNYL Drip 2500mCg/250mlNS 250 ML IV SCH (03:00)
[2022-12-20 04:04] LABS: Basophils # (auto) 0.1 10 ^3/uL (0-0.2); Basophils % (auto) 0.8 % (0.0-2.0); Eosinophils # (auto) 0.3 10 ^3/uL (0-0.8); Eosinophils % (auto) 3.7 % (0.0-7.0); Hematocrit 37.7 % (36.0-46.0); Hemoglobin 12.4 g/dL (12.2-16.2); Lymphocytes % (auto) 22.9 % (10.0-50.0); Mean Corpuscular Hemoglobin 29.3 pg (28.0-32.0); Mean Corpuscular Hgb Conc. 32.8 g/dL (32.0-36.0); Mean Corpuscular Volume 89.3 fL (80.0-100.0); Monocytes # (auto) 0.6 10 ^3/uL (0-1.3); Monocytes % (auto) 6.5 % (0.0-12.0); Neutrophils # (auto) 5.6 10 ^3/uL (1.6-8.6); Neutrophils % (auto) 66.1 % (37.0-80.0); Red Blood Cells 4.22 10^6/uL (4.0-5.20); Red Cell Distribution Width 16.5 % (11.8-14.3); White Blood Cell 8.5 10^3/uL (4.4-10.8)
[2022-12-20] MEDS: PIPERACILLIN-TAZOB 3.375GM 100 ML IV SCH ×4 (04:08→21:43)
[2022-12-20 05:03] LABS: Alanine Aminotransferase 47 U/L (7-40); Albumin 4.3 g/dL (3.2-4.8); Alkaline Phosphatase 90 U/L (46-116); Anion Gap 8 (5-15); BUN/Creatinine Ratio 8.3 (10.0-20.0); Bilirubin, Total 0.2 mg/dL (0.2-1.0); Blood Urea Nitrogen 5 mg/dL (9-23); Calcium 9.6 mg/dL (8.5-10.1); Carbon Dioxide 26 mmol/L (20-30); Chloride 100 mmol/L (98-107); Glucose 115 mg/dL (74-106); Sodium 134 mmol/L (136-145); Total Protein 7.2 g/dL (5.7-8.2)
[2022-12-20 05:14] LABS: Aspartate Aminotransferase 52 U/L (13-40)
[2022-12-20 05:29] LABS: Magnesium 2.1 mg/dL (1.6-2.6)
[2022-12-20] MEDS: METOCLOPRAMIDE HCL 5MG/ml INJ 2ml VIAL IV SCH ×3 (06:18→21:43)
[2022-12-20] MEDS: DOCUSATE ORAL LIQUID 100 MG/10 ML UD GT SCH ×2 (09:43→21:43)
[2022-12-20] MEDS: CITALOPRAM HYDROBR 20 MG TAB PO SCH (09:43)
[2022-12-20] MEDS: PANTOPRAZOLE 40 MG/10 ML VIAL INJ IV SCH (09:43)
[2022-12-20] MEDS: ENOXAPARIN SOD 40 MG/0.4 ML SYRINGE SC SCH (09:44)
[2022-12-20] MEDS: SODIUM CHLOR 0.9% PF (SALINE LOCK) 10ML VIAL/SYR IV SCH ×2 (09:47→21:43)
[2022-12-20] MEDS: FOLIC ACID 1 MG, MULTIPLE VITAMIN 10 ML, MAGNESIUM SULF SDV 50% 8 MEQ, THIAMINE INJ 100... INJ SCH ×5 (12:31)
[2022-12-20] MEDS: MIDAZOLAM DRIP 50 mg/50mL 50 ML IV SCH (17:30)
[2022-12-21] VITALS (99 sets, daily range): BP systolic 119–185; BP diastolic 80–120; PULSE 83–121; RESP 15–28; TEMP 98.4–100.6; O2SAT 95–100
[2022-12-21] MEDS: ACETAMINOPHEN 325 MG TAB PO PRN (00:21)
[2022-12-21] MEDS: chlordiazePOXIDE HCL 25 MG CAP NG SCH ×4 (00:22→17:42)
[2022-12-21] MEDS: FREE WATER PEG SCH ×5 (00:22→23:03)
[2022-12-21] MEDS: NOREPINEPHRINE 8 MG/250ML KIT 250 ML IV SCH (01:45)
[2022-12-21] MEDS: fentaNYL Drip 2500mCg/250mlNS 250 ML IV SCH (03:00)
[2022-12-21 04:10] LABS: Basophils # (auto) 0.1 10 ^3/uL (0-0.2); Basophils % (auto) 0.5 % (0.0-2.0); Eosinophils # (auto) 0.1 10 ^3/uL (0-0.8); Eosinophils % (auto) 0.6 % (0.0-7.0); Hematocrit 40.3 % (36.0-46.0); Hemoglobin 13.3 g/dL (12.2-16.2); Lymphocytes # (auto) 2.1 10 ^3/uL (0.4-5.4); Mean Corpuscular Hemoglobin 29.2 pg (28.0-32.0); Mean Corpuscular Volume 88.4 fL (80.0-100.0); Monocytes # (auto) 0.7 10 ^3/uL (0-1.3); Monocytes % (auto) 5.7 % (0.0-12.0); Neutrophils % (auto) 77.2 % (37.0-80.0); Red Blood Cells 4.56 10^6/uL (4.0-5.20); Red Cell Distribution Width 16.4 % (11.8-14.3); White Blood Cell 12.9 10^3/uL (4.4-10.8)
[2022-12-21 04:42] LABS: Alanine Aminotransferase 46 U/L (7-40); Albumin 4.7 g/dL (3.2-4.8); Alkaline Phosphatase 107 U/L (46-116); Anion Gap 9 (5-15); Aspartate Aminotransferase 43 U/L (13-40); Carbon Dioxide 26 mmol/L (20-30); Chloride 101 mmol/L (98-107); Glucose 116 mg/dL (74-106); Magnesium 2.3 mg/dL (1.6-2.6); Potassium 4.3 mmol/L (3.5-5.1); Sodium 136 mmol/L (136-145)
[2022-12-21 04:43] LABS: BUN/Creatinine Ratio 7.4 (10.0-20.0); Blood Urea Nitrogen < 5 mg/dL (9-23)
[2022-12-21 04:58] LABS: Bilirubin, Total 0.4 mg/dL (0.2-1.0)
[2022-12-21] MEDS: PIPERACILLIN-TAZOB 3.375GM 100 ML IV SCH ×4 (05:08→22:56)
[2022-12-21] MEDS: METOCLOPRAMIDE HCL 5MG/ml INJ 2ml VIAL IV SCH ×3 (06:32→22:56)
[2022-12-21 07:12] LABS: Base Excess -0.7 mmol/L (-2.0-2.0)
[2022-12-21] MEDS: SODIUM CHLOR 0.9% PF (SALINE LOCK) 10ML VIAL/SYR IV SCH ×2 (09:13→22:56)
[2022-12-21] MEDS: PANTOPRAZOLE 40 MG/10 ML VIAL INJ IV SCH (09:13)
[2022-12-21] MEDS: DOCUSATE ORAL LIQUID 100 MG/10 ML UD GT SCH ×2 (09:14→22:55)
[2022-12-21] MEDS: CITALOPRAM HYDROBR 20 MG TAB PO SCH (09:14)
[2022-12-21] MEDS: ENOXAPARIN SOD 40 MG/0.4 ML SYRINGE SC SCH (09:20)
[2022-12-21] MEDS: FOLIC ACID 1 MG, MULTIPLE VITAMIN 10 ML, MAGNESIUM SULF SDV 50% 8 MEQ, THIAMINE INJ 100... INJ SCH ×5 (13:15)
[2022-12-21] MEDS: MIDAZOLAM DRIP 50 mg/50mL 50 ML IV SCH (17:30)
[2022-12-21] MEDS: PROPOFOL 100 ML IV SCH (21:45)
[2022-12-22] VITALS (92 sets, daily range): BP systolic 81–199; BP diastolic 49–118; PULSE 75–129; RESP 13–27; TEMP 97.3–100.2; O2SAT 89–100
[2022-12-22] MEDS: hydrALAZINE HCL 20 MG/ML VL IV PRN ×2 (00:31→13:23)
[2022-12-22] MEDS: ACETAMINOPHEN 325 MG TAB PO PRN (01:11)
[2022-12-22] MEDS: chlordiazePOXIDE HCL 25 MG CAP NG SCH ×2 (01:12→05:47)
[2022-12-22] MEDS: NOREPINEPHRINE 8 MG/250ML KIT 250 ML IV SCH (01:45)
[2022-12-22] MEDS: fentaNYL Drip 2500mCg/250mlNS 250 ML IV SCH (03:00)
[2022-12-22 04:04] LABS: Basophils # (auto) 0.1 10 ^3/uL (0-0.2); Hemoglobin 13.1 g/dL (12.2-16.2)
[2022-12-22 04:08] LABS: Eosinophils # (auto) 0.3 10 ^3/uL (0-0.8); Hematocrit 39.6 % (36.0-46.0); Lymphocytes # (auto) 2.2 10 ^3/uL (0.4-5.4); Lymphocytes % (auto) 14.6 % (10.0-50.0); Mean Corpuscular Hemoglobin 29.3 pg (28.0-32.0); Mean Corpuscular Hgb Conc. 33.1 g/dL (32.0-36.0); Mean Corpuscular Volume 88.4 fL (80.0-100.0); Monocytes # (auto) 0.8 10 ^3/uL (0-1.3); Monocytes % (auto) 5.6 % (0.0-12.0); Neutrophils # (auto) 11.5 10 ^3/uL (1.6-8.6); Neutrophils % (auto) 76.8 % (37.0-80.0); Nucleated Red Blood Cells % 0.1 %; Red Blood Cells 4.48 10^6/uL (4.0-5.20); Red Cell Distribution Width 16.9 % (11.8-14.3)
[2022-12-22 04:24] LABS: Alanine Aminotransferase 52 U/L (7-40); Albumin 4.7 g/dL (3.2-4.8); Alkaline Phosphatase 100 U/L (46-116); Anion Gap 9 (5-15); Aspartate Aminotransferase 50 U/L (13-40); BUN/Creatinine Ratio 8.8 (10.0-20.0); Blood Urea Nitrogen 6 mg/dL (9-23); Calcium 10.1 mg/dL (8.7-10.4); Carbon Dioxide 26 mmol/L (20-30); Chloride 103 mmol/L (98-107); Glucose 124 mg/dL (74-106); Magnesium 2.1 mg/dL (1.6-2.6); Potassium 3.8 mmol/L (3.5-5.1); Sodium 138 mmol/L (136-145)
[2022-12-22 04:25] LABS: Bilirubin, Total 0.4 mg/dL (0.2-1.0); Total Protein 8.1 g/dL (5.7-8.2)
[2022-12-22] MEDS: PIPERACILLIN-TAZOB 3.375GM 100 ML IV SCH ×4 (05:45→22:58)
[2022-12-22] MEDS: METOCLOPRAMIDE HCL 5MG/ml INJ 2ml VIAL IV SCH ×3 (05:46→21:39)
[2022-12-22] MEDS: FREE WATER PEG SCH ×3 (05:47→17:35)
[2022-12-22] MEDS: chlordiazePOXIDE HCL 5 MG CAP NG SCH ×3 (07:35→17:35)
[2022-12-22 08:51] LABS: Base Excess 1.8 mmol/L (-2.0-2.0)
[2022-12-22] MEDS ORDERED: LORazepam 2MG/ML-1ML VIAL IV PRN (09:45)
[2022-12-22] MEDS: DOCUSATE ORAL LIQUID 100 MG/10 ML UD GT SCH ×2 (10:00→21:39)
[2022-12-22] MEDS: SODIUM CHLOR 0.9% PF (SALINE LOCK) 10ML VIAL/SYR IV SCH ×2 (10:10→21:39)
[2022-12-22] MEDS: CITALOPRAM HYDROBR 20 MG TAB PO SCH (10:10)
[2022-12-22] MEDS: PANTOPRAZOLE 40 MG/10 ML VIAL INJ IV SCH (10:10)
[2022-12-22] MEDS: amLODIPine BESYLATE 5 MG TAB PO SCH (10:25)
[2022-12-22] MEDS: ENOXAPARIN SOD 40 MG/0.4 ML SYRINGE SC SCH (10:26)
[2022-12-22] MEDS: FOLIC ACID 1 MG, MULTIPLE VITAMIN 10 ML, MAGNESIUM SULF SDV 50% 8 MEQ, THIAMINE INJ 100... INJ SCH ×5 (12:33)
[2022-12-22 14:52] LABS: Base Excess 2.9 mmol/L (-2.0-2.0)
[2022-12-22] MEDS ORDERED: DexAMETHasone SOD PHOS 10MG/1ML VIAL INJ IV ONE (15:45)
[2022-12-22] MEDS: MIDAZOLAM DRIP 50 mg/50mL 50 ML IV SCH (16:17)
[2022-12-22] MEDS: PROPOFOL 100 ML IV SCH (21:45)
[2022-12-23] VITALS (93 sets, daily range): BP systolic 88–184; BP diastolic 51–114; PULSE 57–154; RESP 13–26; TEMP 97.7–99.7; O2SAT 90–100
[2022-12-23] MEDS: NOREPINEPHRINE 8 MG/250ML KIT 250 ML IV SCH (01:45)
[2022-12-23] MEDS: fentaNYL Drip 2500mCg/250mlNS 250 ML IV SCH (03:00)
[2022-12-23 04:06] LABS: Basophils # (auto) 0.1 10 ^3/uL (0-0.2); Eosinophils # (auto) 0.1 10 ^3/uL (0-0.8); Monocytes # (auto) 0.8 10 ^3/uL (0-1.3); Neutrophils # (auto) 10.1 10 ^3/uL (1.6-8.6)
[2022-12-23 04:09] LABS: Basophils % (auto) 1.1 % (0.0-2.0); Eosinophils % (auto) 0.8 % (0.0-7.0); Hematocrit 37.3 % (36.0-46.0); Hemoglobin 12.1 g/dL (12.2-16.2); Lymphocytes # (auto) 2.9 10 ^3/uL (0.4-5.4); Lymphocytes % (auto) 20.7 % (10.0-50.0); Mean Corpuscular Hemoglobin 28.9 pg (28.0-32.0); Mean Corpuscular Hgb Conc. 32.5 g/dL (32.0-36.0); Mean Corpuscular Volume 88.8 fL (80.0-100.0); Monocytes % (auto) 5.6 % (0.0-12.0); Neutrophils % (auto) 71.8 % (37.0-80.0); Red Cell Distribution Width 16.8 % (11.8-14.3); White Blood Cell 14.1 10^3/uL (4.4-10.8)
[2022-12-23] MEDS: FREE WATER PEG SCH ×4 (04:10→17:51)
[2022-12-23 04:30] LABS: Alanine Aminotransferase 45 U/L (7-40); Albumin 4.5 g/dL (3.2-4.8); Alkaline Phosphatase 88 U/L (46-116); Anion Gap 9 (5-15); Aspartate Aminotransferase 35 U/L (13-40); BUN/Creatinine Ratio 12.7 (10.0-20.0); Blood Urea Nitrogen 9 mg/dL (9-23); Carbon Dioxide 26 mmol/L (20-30); Chloride 101 mmol/L (98-107); Glucose 165 mg/dL (74-106); Magnesium 2.2 mg/dL (1.6-2.6); Potassium 3.7 mmol/L (3.5-5.1); Sodium 136 mmol/L (136-145); Total Protein 7.6 g/dL (5.7-8.2)
[2022-12-23 04:31] LABS: Bilirubin, Total 0.4 mg/dL (0.2-1.0)
[2022-12-23] MEDS: chlordiazePOXIDE HCL 5 MG CAP NG SCH ×4 (06:00→17:50)
[2022-12-23] MEDS: METOCLOPRAMIDE HCL 5MG/ml INJ 2ml VIAL IV SCH ×3 (06:00→22:00)
[2022-12-23] MEDS: PIPERACILLIN-TAZOB 3.375GM 100 ML IV SCH ×4 (06:09→22:06)
[2022-12-23 07:52] LABS: Base Excess 2.4 mmol/L (-2.0-2.0)
[2022-12-23] MEDS: amLODIPine BESYLATE 5 MG TAB PO SCH (10:00)
[2022-12-23] MEDS: DOCUSATE ORAL LIQUID 100 MG/10 ML UD GT SCH ×2 (10:00→22:00)
[2022-12-23] MEDS: CITALOPRAM HYDROBR 20 MG TAB PO SCH (10:00)
[2022-12-23] MEDS: PANTOPRAZOLE 40 MG/10 ML VIAL INJ IV SCH (10:27)
[2022-12-23] MEDS: ENOXAPARIN SOD 40 MG/0.4 ML SYRINGE SC SCH (10:27)
[2022-12-23] MEDS: SODIUM CHLOR 0.9% PF (SALINE LOCK) 10ML VIAL/SYR IV SCH ×2 (10:27→22:05)
[2022-12-23] MEDS: FOLIC ACID 1 MG, MULTIPLE VITAMIN 10 ML, MAGNESIUM SULF SDV 50% 8 MEQ, THIAMINE INJ 100... INJ SCH ×5 (14:31)
[2022-12-23 14:47] LABS: Base Excess -1.5 mmol/L (-2.0-2.0)
[2022-12-23] MEDS ORDERED: DexAMETHasone SOD PHOS 10MG/1ML VIAL INJ IV ONE (15:15)
[2022-12-23] MEDS: hydrALAZINE HCL 20 MG/ML VL IV PRN ×2 (15:27→15:34)
[2022-12-23] MEDS: EPINEPHrine HCL 0.5 ML NEB NEB PRN ×2 (15:40→15:41)
[2022-12-23] MEDS ORDERED: ROCURONIUM 10MG/ML 10ML VIAL IV ONE (16:04)
[2022-12-23] MEDS ORDERED: ETOMIDATE (2MG/ML) 20ML VIAL IV ONE ×2 (16:04→16:14)
[2022-12-23] MEDS ORDERED: SUCCINYLCHOLINE CHLORIDE 20 MG/ML 10ML VIAL IV ONE ×2 (16:11→16:16)
[2022-12-23] MEDS ORDERED: EPINEPHrine HCL 1 MG/10 ML SYRG IV ONE (16:18)
[2022-12-23] MEDS: MIDAZOLAM DRIP 50 mg/50mL 50 ML IV SCH ×2 (16:25→17:55)
[2022-12-23] MEDS ORDERED: diphenhdrAMINE HCL 50 MG/1 ML VL IV PRN (16:30)
[2022-12-23] MEDS ORDERED: FAMOTIDINE (10MG/ML) 2ML VL IV ONE (16:30)
[2022-12-23] MEDS: PROPOFOL 100 ML IV SCH ×2 (16:30→21:21)
[2022-12-23] MEDS ORDERED: methylPREDNISolone SOD SUCC 40 MG/ML VL IV ONE (16:30)
[2022-12-23] MEDS ORDERED: diphenhdrAMINE HCL 50 MG/1 ML VL IV ONE (16:30)
[2022-12-23 18:59] LABS: Base Excess 0.1 mmol/L (-2.0-2.0)
[2022-12-23] MEDS: FAMOTIDINE (10MG/ML) 2ML VL IV SCH (22:05)
[2022-12-23] MEDS: methylPREDNISolone SOD SUCC 40 MG/ML VL IV SCH (22:05)
[2022-12-24] VITALS (106 sets, daily range): BP systolic 93–148; BP diastolic 49–98; PULSE 48–92; RESP 13–23; TEMP 97–98.6; O2SAT 93–100
[2022-12-24] MEDS: NOREPINEPHRINE 8 MG/250ML KIT 250 ML IV SCH (01:45)
[2022-12-24] MEDS: PROPOFOL 100 ML IV SCH ×6 (02:44→19:53)
[2022-12-24] MEDS: MIDAZOLAM DRIP 50 mg/50mL 50 ML IV SCH ×3 (02:44→19:53)
[2022-12-24] MEDS: fentaNYL Drip 2500mCg/250mlNS 250 ML IV SCH (03:00)
[2022-12-24 04:16] LABS: Basophils # (auto) 0 10 ^3/uL (0-0.2); Basophils % (auto) 0.2 % (0.0-2.0); Eosinophils # (auto) 0 10 ^3/uL (0-0.8); Lymphocytes # (auto) 1.5 10 ^3/uL (0.4-5.4); Monocytes # (auto) 0.3 10 ^3/uL (0-1.3)
[2022-12-24 04:20] LABS: Hematocrit 37.7 % (36.0-46.0); Hemoglobin 12.2 g/dL (12.2-16.2); Lymphocytes % (auto) 9.3 % (10.0-50.0); Mean Corpuscular Hgb Conc. 32.4 g/dL (32.0-36.0); Mean Corpuscular Volume 89.5 fL (80.0-100.0); Neutrophils # (auto) 14.4 10 ^3/uL (1.6-8.6); Neutrophils % (auto) 88.5 % (37.0-80.0); Red Blood Cells 4.21 10^6/uL (4.0-5.20); Red Cell Distribution Width 16.2 % (11.8-14.3); White Blood Cell 16.3 10^3/uL (4.4-10.8)
[2022-12-24 04:31] LABS: Alanine Aminotransferase 56 U/L (7-40); Albumin 4.7 g/dL (3.2-4.8); Alkaline Phosphatase 89 U/L (46-116); Anion Gap 7 (5-15); Aspartate Aminotransferase 38 U/L (13-40); BUN/Creatinine Ratio 14.3 (10.0-20.0); Blood Urea Nitrogen 9 mg/dL (9-23); Calcium 9.9 mg/dL (8.7-10.4); Carbon Dioxide 27 mmol/L (20-30); Chloride 105 mmol/L (98-107); Glucose 120 mg/dL (74-106); Magnesium 2.2 mg/dL (1.6-2.6); Sodium 139 mmol/L (136-145)
[2022-12-24 04:33] LABS: Bilirubin, Total 0.4 mg/dL (0.2-1.0); Total Protein 7.8 g/dL (5.7-8.2)
[2022-12-24] MEDS: chlordiazePOXIDE HCL 5 MG CAP NG SCH ×2 (06:00)
[2022-12-24] MEDS: FREE WATER PEG SCH ×6 (06:00→21:45)
[2022-12-24] MEDS: METOCLOPRAMIDE HCL 5MG/ml INJ 2ml VIAL IV SCH (06:36)
[2022-12-24] MEDS: PIPERACILLIN-TAZOB 3.375GM 100 ML IV SCH (06:36)
[2022-12-24] MEDS: methylPREDNISolone SOD SUCC 40 MG/ML VL IV SCH ×3 (06:36→21:45)
[2022-12-24 08:12] LABS: Base Excess 1.1 mmol/L (-2.0-2.0)
[2022-12-24] MEDS: PANTOPRAZOLE 40 MG/10 ML VIAL INJ IV SCH (09:58)
[2022-12-24] MEDS: ENOXAPARIN SOD 40 MG/0.4 ML SYRINGE SC SCH (09:59)
[2022-12-24] MEDS: CITALOPRAM HYDROBR 20 MG TAB PO SCH (09:59)
[2022-12-24] MEDS: amLODIPine BESYLATE 5 MG TAB PO SCH (09:59)
[2022-12-24] MEDS: SODIUM CHLOR 0.9% PF (SALINE LOCK) 10ML VIAL/SYR IV SCH ×2 (09:59→21:45)
[2022-12-24] MEDS: FAMOTIDINE (10MG/ML) 2ML VL IV SCH ×2 (10:00→21:45)
[2022-12-24] MEDS: DOCUSATE ORAL LIQUID 100 MG/10 ML UD GT SCH (10:00)
[2022-12-24] MEDS ORDERED: DOCUSATE ORAL LIQUID 100 MG/10 ML UD GT PRN (11:30)
[2022-12-24] MEDS: FOLIC ACID 1 MG, MULTIPLE VITAMIN 10 ML, MAGNESIUM SULF SDV 50% 8 MEQ, THIAMINE INJ 100... INJ SCH ×5 (12:01)
[2022-12-24] MEDS: cefTRIAXone 1GM/50ML D5W 50 ML IV SCH (12:02)
[2022-12-24] MEDS: AZITHROMYCIN 500MG/ 250ML 250 ML IV SCH (12:55)
[2022-12-24] MEDS: GABAPENTIN 300 MG CAP PO SCH ×2 (14:12→21:45)
[2022-12-25] VITALS (107 sets, daily range): BP systolic 95–138; BP diastolic 50–92; PULSE 55–85; RESP 14–22; TEMP 97–98.4; O2SAT 90–100
[2022-12-25] MEDS: NOREPINEPHRINE 8 MG/250ML KIT 250 ML IV SCH (01:45)
[2022-12-25] MEDS: PROPOFOL 100 ML IV SCH ×3 (02:51→11:41)
[2022-12-25] MEDS: MIDAZOLAM DRIP 50 mg/50mL 50 ML IV SCH ×3 (02:52→18:16)
[2022-12-25] MEDS: fentaNYL Drip 2500mCg/250mlNS 250 ML IV SCH (03:00)
[2022-12-25 04:48] LABS: Basophils # (auto) 0 10 ^3/uL (0-0.2); Eosinophils # (auto) 0 10 ^3/uL (0-0.8); Lymphocytes # (auto) 1.9 10 ^3/uL (0.4-5.4); Lymphocytes % (auto) 17.9 % (10.0-50.0); Monocytes # (auto) 0.4 10 ^3/uL (0-1.3); Red Cell Distribution Width 16.2 % (11.8-14.3)
[2022-12-25 04:50] LABS: Basophils % (auto) 0.3 % (0.0-2.0); Hematocrit 36.4 % (36.0-46.0); Mean Corpuscular Hemoglobin 29.4 pg (28.0-32.0); Mean Corpuscular Volume 89.1 fL (80.0-100.0); Neutrophils # (auto) 8.3 10 ^3/uL (1.6-8.6); Neutrophils % (auto) 77.8 % (37.0-80.0); Red Blood Cells 4.08 10^6/uL (4.0-5.20); White Blood Cell 10.7 10^3/uL (4.4-10.8)
[2022-12-25 05:12] LABS: Alanine Aminotransferase 63 U/L (7-40); Albumin 4.5 g/dL (3.2-4.8); Alkaline Phosphatase 84 U/L (46-116); Anion Gap 8 (5-15); Aspartate Aminotransferase 40 U/L (13-40); BUN/Creatinine Ratio 18.3 (10.0-20.0); Bilirubin, Total 0.3 mg/dL (0.2-1.0); Blood Urea Nitrogen 11 mg/dL (9-23); Calcium 9.6 mg/dL (8.7-10.4); Carbon Dioxide 27 mmol/L (20-30); Chloride 104 mmol/L (98-107); Glucose 108 mg/dL (74-106); Magnesium 2.2 mg/dL (1.6-2.6); Potassium 4.2 mmol/L (3.5-5.1); Sodium 139 mmol/L (136-145); Total Protein 7.5 g/dL (5.7-8.2)
[2022-12-25] MEDS: GABAPENTIN 300 MG CAP PO SCH ×3 (05:58→21:18)
[2022-12-25] MEDS: methylPREDNISolone SOD SUCC 40 MG/ML VL IV SCH ×3 (05:58→21:18)
[2022-12-25] MEDS: FREE WATER PEG SCH ×3 (05:59→21:19)
[2022-12-25] MEDS: amLODIPine BESYLATE 5 MG TAB PO SCH (07:12)
[2022-12-25 07:49] LABS: Base Excess 2.6 mmol/L (-2.0-2.0)
[2022-12-25] MEDS: cefTRIAXone 1GM/50ML D5W 50 ML IV SCH (07:49)
[2022-12-25 08:01] LABS: Base Excess 2.2 mmol/L (-2.0-2.0)
[2022-12-25] MEDS: SODIUM CHLOR 0.9% PF (SALINE LOCK) 10ML VIAL/SYR IV SCH ×2 (08:16→21:19)
[2022-12-25] MEDS: FAMOTIDINE (10MG/ML) 2ML VL IV SCH ×2 (08:30→21:18)
[2022-12-25] MEDS: AZITHROMYCIN 500MG/ 250ML 250 ML IV SCH (08:30)
[2022-12-25] MEDS: CITALOPRAM HYDROBR 20 MG TAB PO SCH (08:31)
[2022-12-25] MEDS: ENOXAPARIN SOD 40 MG/0.4 ML SYRINGE SC SCH (08:31)
[2022-12-25] MEDS: PANTOPRAZOLE 40 MG/10 ML VIAL INJ IV SCH (08:52)
[2022-12-25] MEDS: FOLIC ACID 1 MG, MULTIPLE VITAMIN 10 ML, MAGNESIUM SULF SDV 50% 8 MEQ, THIAMINE INJ 100... INJ SCH ×5 (12:00)
[2022-12-26] VITALS (108 sets, daily range): BP systolic 90–145; BP diastolic 45–100; PULSE 55–87; RESP 12–20; TEMP 97.5–99.1; O2SAT 90–98
[2022-12-26] MEDS: NOREPINEPHRINE 8 MG/250ML KIT 250 ML IV SCH (01:45)
[2022-12-26] MEDS: fentaNYL Drip 2500mCg/250mlNS 250 ML IV SCH (02:29)
[2022-12-26 02:46] LABS: Eosinophils # (auto) 0 10 ^3/uL (0-0.8); Lymphocytes # (auto) 1.8 10 ^3/uL (0.4-5.4)
[2022-12-26 02:47] LABS: Basophils # (auto) 0 10 ^3/uL (0-0.2); Basophils % (auto) 0.4 % (0.0-2.0); Eosinophils % (auto) 0.1 % (0.0-7.0); Hematocrit 37.6 % (36.0-46.0); Hemoglobin 12.4 g/dL (12.2-16.2); Lymphocytes % (auto) 17.4 % (10.0-50.0); Mean Corpuscular Hemoglobin 29.3 pg (28.0-32.0); Mean Corpuscular Hgb Conc. 32.8 g/dL (32.0-36.0); Mean Corpuscular Volume 89.2 fL (80.0-100.0); Monocytes # (auto) 0.5 10 ^3/uL (0-1.3); Monocytes % (auto) 4.5 % (0.0-12.0); Neutrophils # (auto) 7.8 10 ^3/uL (1.6-8.6); Neutrophils % (auto) 77.6 % (37.0-80.0); Red Blood Cells 4.22 10^6/uL (4.0-5.20); Red Cell Distribution Width 16.4 % (11.8-14.3); White Blood Cell 10.1 10^3/uL (4.4-10.8)
[2022-12-26 03:03] LABS: Alanine Aminotransferase 70 U/L (7-40); Albumin 4.7 g/dL (3.2-4.8); Alkaline Phosphatase 84 U/L (46-116); Anion Gap 7 (5-15); Aspartate Aminotransferase 41 U/L (13-40); BUN/Creatinine Ratio 19.3 (10.0-20.0); Bilirubin, Total 0.3 mg/dL (0.2-1.0); Blood Urea Nitrogen 11 mg/dL (9-23); Calcium 9.3 mg/dL (8.7-10.4); Carbon Dioxide 27 mmol/L (20-30); Chloride 105 mmol/L (98-107); Glucose 109 mg/dL (74-106); Potassium 4.4 mmol/L (3.5-5.1); Sodium 139 mmol/L (136-145)
[2022-12-26 03:04] LABS: Total Protein 7.7 g/dL (5.7-8.2)
[2022-12-26] MEDS: FREE WATER PEG SCH ×3 (05:06→21:57)
[2022-12-26] MEDS: methylPREDNISolone SOD SUCC 40 MG/ML VL IV SCH ×3 (05:06→21:57)
[2022-12-26] MEDS: GABAPENTIN 300 MG CAP PO SCH ×3 (05:06→21:57)
[2022-12-26] MEDS: SODIUM CHLOR 0.9% PF (SALINE LOCK) 10ML VIAL/SYR IV SCH ×2 (07:02→21:57)
[2022-12-26] MEDS: amLODIPine BESYLATE 5 MG TAB PO SCH (07:02)
[2022-12-26 07:21] LABS: Base Excess 2.3 mmol/L (-2.0-2.0)
[2022-12-26] MEDS: FAMOTIDINE (10MG/ML) 2ML VL IV SCH ×2 (07:47→21:57)
[2022-12-26] MEDS: CITALOPRAM HYDROBR 20 MG TAB PO SCH (07:48)
[2022-12-26] MEDS: PANTOPRAZOLE 40 MG/10 ML VIAL INJ IV SCH (07:48)
[2022-12-26] MEDS: MIDAZOLAM DRIP 50 mg/50mL 50 ML IV SCH ×3 (07:48→18:51)
[2022-12-26] MEDS: cefTRIAXone 1GM/50ML D5W 50 ML IV SCH (07:48)
[2022-12-26] MEDS: ENOXAPARIN SOD 40 MG/0.4 ML SYRINGE SC SCH (07:48)
[2022-12-26] MEDS: AZITHROMYCIN 500MG/ 250ML 250 ML IV SCH (07:49)
[2022-12-26] MEDS: FOLIC ACID 1 MG, MULTIPLE VITAMIN 10 ML, MAGNESIUM SULF SDV 50% 8 MEQ, THIAMINE INJ 100... INJ SCH ×5 (12:11)
[2022-12-26] MEDS: PROPOFOL 100 ML IV SCH ×3 (13:37→20:51)
[2022-12-27] VITALS (106 sets, daily range): BP systolic 117–155; BP diastolic 73–105; PULSE 82–101; RESP 16–24; TEMP 99–100; O2SAT 91–99
[2022-12-27] MEDS: MIDAZOLAM DRIP 50 mg/50mL 50 ML IV SCH ×3 (00:01→08:25)
[2022-12-27] MEDS: PROPOFOL 100 ML IV SCH ×5 (00:02→17:17)
[2022-12-27] MEDS: NOREPINEPHRINE 8 MG/250ML KIT 250 ML IV SCH (01:45)
[2022-12-27] MEDS: fentaNYL Drip 2500mCg/250mlNS 250 ML IV SCH (03:00)
[2022-12-27 04:27] LABS: Basophils # (auto) 0.1 10 ^3/uL (0-0.2); Eosinophils # (auto) 0 10 ^3/uL (0-0.8); Hemoglobin 12.4 g/dL (12.2-16.2); Mean Corpuscular Volume 89.2 fL (80.0-100.0); Monocytes # (auto) 0.6 10 ^3/uL (0-1.3); Neutrophils # (auto) 10.6 10 ^3/uL (1.6-8.6)
[2022-12-27 04:28] LABS: Basophils % (auto) 0.9 % (0.0-2.0); Eosinophils % (auto) 0.1 % (0.0-7.0); Hematocrit 37.7 % (36.0-46.0); Lymphocytes % (auto) 15.2 % (10.0-50.0); Mean Corpuscular Hemoglobin 29.3 pg (28.0-32.0); Mean Corpuscular Hgb Conc. 32.9 g/dL (32.0-36.0); Monocytes % (auto) 4.7 % (0.0-12.0); Neutrophils % (auto) 79.1 % (37.0-80.0); Red Blood Cells 4.23 10^6/uL (4.0-5.20); Red Cell Distribution Width 16.6 % (11.8-14.3); White Blood Cell 13.3 10^3/uL (4.4-10.8)
[2022-12-27 04:45] LABS: Alanine Aminotransferase 69 U/L (7-40); Albumin 4.7 g/dL (3.2-4.8); Alkaline Phosphatase 87 U/L (46-116); Anion Gap 10 (5-15); Aspartate Aminotransferase 33 U/L (13-40); BUN/Creatinine Ratio 17.5 (10.0-20.0); Bilirubin, Total 0.3 mg/dL (0.2-1.0); Blood Urea Nitrogen 11 mg/dL (9-23); Calcium 9.4 mg/dL (8.7-10.4); Carbon Dioxide 26 mmol/L (20-30); Chloride 104 mmol/L (98-107); Glucose 102 mg/dL (74-106); Potassium 4.3 mmol/L (3.5-5.1); Sodium 140 mmol/L (136-145)
[2022-12-27 04:46] LABS: Total Protein 7.7 g/dL (5.7-8.2)
[2022-12-27] MEDS: GABAPENTIN 300 MG CAP PO SCH ×3 (05:53→21:36)
[2022-12-27] MEDS: methylPREDNISolone SOD SUCC 40 MG/ML VL IV SCH ×3 (05:53→21:36)
[2022-12-27] MEDS: FREE WATER PEG SCH ×3 (05:53→21:36)
[2022-12-27] MEDS: cefTRIAXone 1GM/50ML D5W 50 ML IV SCH (09:03)
[2022-12-27] MEDS: FAMOTIDINE (10MG/ML) 2ML VL IV SCH ×2 (10:06→21:36)
[2022-12-27] MEDS: ENOXAPARIN SOD 40 MG/0.4 ML SYRINGE SC SCH (10:07)
[2022-12-27] MEDS: CITALOPRAM HYDROBR 20 MG TAB PO SCH (10:07)
[2022-12-27] MEDS: PANTOPRAZOLE 40 MG/10 ML VIAL INJ IV SCH (10:07)
[2022-12-27] MEDS: AZITHROMYCIN 500MG/ 250ML 250 ML IV SCH (10:09)
[2022-12-27] MEDS: SODIUM CHLOR 0.9% PF (SALINE LOCK) 10ML VIAL/SYR IV SCH ×2 (10:09→21:36)
[2022-12-27] MEDS: amLODIPine BESYLATE 5 MG TAB PO SCH (10:18)
[2022-12-27] MEDS: FOLIC ACID 1 MG, MULTIPLE VITAMIN 10 ML, MAGNESIUM SULF SDV 50% 8 MEQ, THIAMINE INJ 100... INJ SCH ×5 (11:57)
[2022-12-28] VITALS (76 sets, daily range): BP systolic 113–155; BP diastolic 72–107; PULSE 79–118; RESP 12–22; TEMP 99–100; O2SAT 93–98
[2022-12-28] MEDS: PROPOFOL 100 ML IV SCH ×2 (00:09→02:53)
[2022-12-28] MEDS: NOREPINEPHRINE 8 MG/250ML KIT 250 ML IV SCH (01:45)
[2022-12-28] MEDS: fentaNYL Drip 2500mCg/250mlNS 250 ML IV SCH (03:00)
[2022-12-28 04:40] LABS: Basophils # (auto) 0.1 10 ^3/uL (0-0.2); Basophils % (auto) 0.5 % (0.0-2.0); Eosinophils # (auto) 0 10 ^3/uL (0-0.8); Eosinophils % (auto) 0.1 % (0.0-7.0); Hematocrit 40.5 % (36.0-46.0); Lymphocytes # (auto) 2.7 10 ^3/uL (0.4-5.4); Lymphocytes % (auto) 19.6 % (10.0-50.0); Mean Corpuscular Hemoglobin 28.6 pg (28.0-32.0); Mean Corpuscular Hgb Conc. 32.1 g/dL (32.0-36.0); Mean Corpuscular Volume 89.1 fL (80.0-100.0); Monocytes # (auto) 0.8 10 ^3/uL (0-1.3); Monocytes % (auto) 6.1 % (0.0-12.0); Neutrophils # (auto) 10.1 10 ^3/uL (1.6-8.6); Neutrophils % (auto) 73.7 % (37.0-80.0); Nucleated Red Blood Cells % 0.1 %; Red Blood Cells 4.54 10^6/uL (4.0-5.20); Red Cell Distribution Width 16.5 % (11.8-14.3); White Blood Cell 13.7 10^3/uL (4.4-10.8)
[2022-12-28 05:01] LABS: Alanine Aminotransferase 71 U/L (7-40); Albumin 4.8 g/dL (3.2-4.8); Alkaline Phosphatase 94 U/L (46-116); Anion Gap 9 (5-15); Aspartate Aminotransferase 34 U/L (13-40); Blood Urea Nitrogen 12 mg/dL (9-23); Calcium 9.8 mg/dL (8.7-10.4); Carbon Dioxide 27 mmol/L (20-30); Chloride 102 mmol/L (98-107); Glucose 107 mg/dL (74-106); Potassium 4.3 mmol/L (3.5-5.1); Sodium 138 mmol/L (136-145)
[2022-12-28 05:02] LABS: Bilirubin, Total 0.3 mg/dL (0.2-1.0)
[2022-12-28] MEDS: GABAPENTIN 300 MG CAP PO SCH ×4 (05:52→22:05)
[2022-12-28] MEDS: methylPREDNISolone SOD SUCC 40 MG/ML VL IV SCH ×2 (05:52→15:57)
[2022-12-28] MEDS: FREE WATER PEG SCH ×4 (05:52→22:05)
[2022-12-28 08:34] LABS: Base Excess 2.6 mmol/L (-2.0-2.0)
[2022-12-28] MEDS: FAMOTIDINE (10MG/ML) 2ML VL IV SCH ×2 (09:36→22:05)
[2022-12-28] MEDS: ENOXAPARIN SOD 40 MG/0.4 ML SYRINGE SC SCH (09:36)
[2022-12-28] MEDS: cefTRIAXone 1GM/50ML D5W 50 ML IV SCH (09:36)
[2022-12-28] MEDS: AZITHROMYCIN 500MG/ 250ML 250 ML IV SCH (09:36)
[2022-12-28] MEDS: PANTOPRAZOLE 40 MG/10 ML VIAL INJ IV SCH (09:36)
[2022-12-28] MEDS: amLODIPine BESYLATE 5 MG TAB PO SCH (09:39)
[2022-12-28] MEDS: CITALOPRAM HYDROBR 20 MG TAB PO SCH (09:53)
[2022-12-28] MEDS: SODIUM CHLOR 0.9% PF (SALINE LOCK) 10ML VIAL/SYR IV SCH ×2 (09:53→22:05)
[2022-12-28 10:57] LABS: Magnesium 2.2 mg/dL (1.6-2.6)
[2022-12-28] MEDS: FOLIC ACID 1 MG, MULTIPLE VITAMIN 10 ML, MAGNESIUM SULF SDV 50% 8 MEQ, THIAMINE INJ 100... INJ SCH ×5 (12:20)
[2022-12-29] VITALS (43 sets, daily range): BP systolic 100–152; BP diastolic 62–98; PULSE 72–114; RESP 11–23; TEMP 97.6–99.7; O2SAT 80–99
[2022-12-29] MEDS: NOREPINEPHRINE 8 MG/250ML KIT 250 ML IV SCH (01:45)
[2022-12-29 04:12] LABS: Basophils # (auto) 0.1 10 ^3/uL (0-0.2); Eosinophils # (auto) 0.2 10 ^3/uL (0-0.8); Hemoglobin 12.4 g/dL (12.2-16.2); Lymphocytes # (auto) 3.9 10 ^3/uL (0.4-5.4); Mean Corpuscular Hemoglobin 28.9 pg (28.0-32.0); Mean Corpuscular Hgb Conc. 32.3 g/dL (32.0-36.0); Monocytes # (auto) 1.2 10 ^3/uL (0-1.3); Neutrophils # (auto) 6.8 10 ^3/uL (1.6-8.6); Nucleated Red Blood Cells % 0.1 %; White Blood Cell 12.2 10^3/uL (4.4-10.8)
[2022-12-29 04:15] LABS: Basophils % (auto) 0.6 % (0.0-2.0); Eosinophils % (auto) 1.7 % (0.0-7.0); Hematocrit 38.5 % (36.0-46.0); Lymphocytes % (auto) 32.3 % (10.0-50.0); Mean Corpuscular Volume 89.5 fL (80.0-100.0); Monocytes % (auto) 9.5 % (0.0-12.0); Neutrophils % (auto) 55.9 % (37.0-80.0); Red Cell Distribution Width 16.2 % (11.8-14.3)
[2022-12-29 04:40] LABS: Alanine Aminotransferase 70 U/L (7-40); Albumin 4.9 g/dL (3.2-4.8); Alkaline Phosphatase 92 U/L (46-116); Anion Gap 8 (5-15); Aspartate Aminotransferase 33 U/L (13-40); Bilirubin, Total 0.5 mg/dL (0.2-1.0); Blood Urea Nitrogen 11 mg/dL (9-23); Calcium 9.7 mg/dL (8.7-10.4); Carbon Dioxide 28 mmol/L (20-30); Chloride 101 mmol/L (98-107); Glucose 84 mg/dL (74-106); Potassium 3.6 mmol/L (3.5-5.1); Sodium 137 mmol/L (136-145); Total Protein 7.8 g/dL (5.7-8.2)
[2022-12-29] MEDS: GABAPENTIN 300 MG CAP PO SCH ×3 (05:38→21:31)
[2022-12-29] MEDS: FREE WATER PEG SCH ×2 (05:38→13:49)
[2022-12-29] MEDS: PANTOPRAZOLE 40 MG/10 ML VIAL INJ IV SCH (09:49)
[2022-12-29] MEDS: cefTRIAXone 1GM/50ML D5W 50 ML IV SCH (09:49)
[2022-12-29] MEDS: FAMOTIDINE (10MG/ML) 2ML VL IV SCH ×2 (09:49→21:31)
[2022-12-29] MEDS: ENOXAPARIN SOD 40 MG/0.4 ML SYRINGE SC SCH (09:49)
[2022-12-29] MEDS: CITALOPRAM HYDROBR 20 MG TAB PO SCH (09:50)
[2022-12-29] MEDS: SODIUM CHLOR 0.9% PF (SALINE LOCK) 10ML VIAL/SYR IV SCH ×2 (09:50→21:32)
[2022-12-29] MEDS: amLODIPine BESYLATE 5 MG TAB PO SCH (09:50)
[2022-12-29] MEDS: AZITHROMYCIN 500MG/ 250ML 250 ML IV SCH (09:50)
[2022-12-29] MEDS ORDERED: FUROSEMIDE 40 MG/4 ML VIAL IV ONE (12:00)
[2022-12-29] MEDS: FOLIC ACID 1 MG, MULTIPLE VITAMIN 10 ML, MAGNESIUM SULF SDV 50% 8 MEQ, THIAMINE INJ 100... INJ SCH ×5 (12:20)
[2022-12-29 12:24] LABS: Base Excess 2.8 mmol/L (-2.0-2.0)
[2022-12-29] MEDS ORDERED: METOPROLOL TARTRATE 25 MG TAB PO SCH (22:00)
[2022-12-30] VITALS (45 sets, daily range): BP systolic 91–137; BP diastolic 55–86; PULSE 87–123; RESP 13–28; TEMP 97.5–99.8; O2SAT 90–100
[2022-12-30] MEDS: GABAPENTIN 300 MG CAP PO SCH ×3 (05:13→21:39)
[2022-12-30] MEDS: amLODIPine BESYLATE 5 MG TAB PO SCH (10:00)
[2022-12-30] MEDS: cefTRIAXone 1GM/50ML D5W 50 ML IV SCH (10:11)
[2022-12-30] MEDS ORDERED: LORazepam 2MG/ML-1ML VIAL IV PRN (10:30)
[2022-12-30] MEDS: FAMOTIDINE (10MG/ML) 2ML VL IV SCH ×2 (10:32→21:39)
[2022-12-30] MEDS: PANTOPRAZOLE 40 MG/10 ML VIAL INJ IV SCH (10:32)
[2022-12-30] MEDS: SODIUM CHLOR 0.9% PF (SALINE LOCK) 10ML VIAL/SYR IV SCH (10:32)
[2022-12-30] MEDS: ENOXAPARIN SOD 40 MG/0.4 ML SYRINGE SC SCH (10:33)
[2022-12-30] MEDS: CITALOPRAM HYDROBR 20 MG TAB PO SCH (10:33)
[2022-12-30] MEDS ORDERED: FUROSEMIDE 40 MG/4 ML VIAL IV ONE (11:00)
[2022-12-30] MEDS: AZITHROMYCIN 500MG/ 250ML 250 ML IV SCH (11:13)
[2022-12-30] MEDS: POTASSIUM CHL 20MEQ/100ML 100 ML IV SCH ×2 (12:11→14:28)
[2022-12-30] MEDS: METOPROLOL TARTRATE 25 MG TAB PO SCH ×2 (14:29→21:49)
[2022-12-30] MEDS: FOLIC ACID 1 MG, MULTIPLE VITAMIN 10 ML, MAGNESIUM SULF SDV 50% 8 MEQ, THIAMINE INJ 100... INJ SCH ×5 (14:39)
[2022-12-30] MEDS ORDERED: EPINEPHrine HCL 1 MG/10 ML SYRG IV ONE (19:17)
[2022-12-31] VITALS (9 sets, daily range): BP systolic 116–143; BP diastolic 65–87; PULSE 87–110; RESP 15–23; TEMP 98.1–98.8; O2SAT 93–100
[2022-12-31] MEDS: SODIUM CHLOR 0.9% PF (SALINE LOCK) 10ML VIAL/SYR IV SCH ×3 (03:06→22:03)
[2022-12-31] MEDS: GABAPENTIN 300 MG CAP PO SCH ×3 (06:46→21:55)
[2022-12-31] MEDS: METOPROLOL TARTRATE 25 MG TAB PO SCH ×3 (06:47→21:55)
[2022-12-31] MEDS: CITALOPRAM HYDROBR 20 MG TAB PO SCH (11:27)
[2022-12-31] MEDS: PANTOPRAZOLE 40 MG/10 ML VIAL INJ IV SCH (11:27)
[2022-12-31] MEDS: cefTRIAXone 1GM/50ML D5W 50 ML IV SCH (11:27)
[2022-12-31] MEDS: FAMOTIDINE (10MG/ML) 2ML VL IV SCH ×2 (11:27→21:56)
[2022-12-31] MEDS: amLODIPine BESYLATE 5 MG TAB PO SCH (11:28)
[2022-12-31] MEDS: ENOXAPARIN SOD 40 MG/0.4 ML SYRINGE SC SCH (11:29)
[2022-12-31] MEDS: AZITHROMYCIN 500MG/ 250ML 250 ML IV SCH (12:47)
[2022-12-31] MEDS: FOLIC ACID 1 MG, MULTIPLE VITAMIN 10 ML, MAGNESIUM SULF SDV 50% 8 MEQ, THIAMINE INJ 100... INJ SCH ×5 (14:16)
[2022-12-31] MEDS: ACETAMINOPHEN 325 MG TAB PO PRN (23:14)
[2023-01-01] VITALS (7 sets, daily range): BP systolic 114–130; BP diastolic 45–89; PULSE 95–108; RESP 15–22; TEMP 96.3–98.7; O2SAT 92–99
[2023-01-01] MEDS: GABAPENTIN 300 MG CAP PO SCH ×3 (06:58→21:48)
[2023-01-01] MEDS: METOPROLOL TARTRATE 25 MG TAB PO SCH ×3 (06:59→21:48)
[2023-01-01] MEDS: cefTRIAXone 1GM/50ML D5W 50 ML IV SCH (09:12)
[2023-01-01] MEDS: FAMOTIDINE (10MG/ML) 2ML VL IV SCH ×2 (09:15→21:48)
[2023-01-01] MEDS: CITALOPRAM HYDROBR 20 MG TAB PO SCH (09:25)
[2023-01-01] MEDS: ENOXAPARIN SOD 40 MG/0.4 ML SYRINGE SC SCH (09:25)
[2023-01-01] MEDS: SODIUM CHLOR 0.9% PF (SALINE LOCK) 10ML VIAL/SYR IV SCH ×2 (09:31→21:49)
[2023-01-01] MEDS: PANTOPRAZOLE 40 MG/10 ML VIAL INJ IV SCH (09:31)
[2023-01-01] MEDS: amLODIPine BESYLATE 5 MG TAB PO SCH (09:33)
[2023-01-01] MEDS: AZITHROMYCIN 500MG/ 250ML 250 ML IV SCH (09:54)
[2023-01-01 14:22] LABS: COVID19 ANTIGEN SOFIA FIA NEGATIVE (NEGATIVE)
[2023-01-01] MEDS: FOLIC ACID 1 MG, MULTIPLE VITAMIN 10 ML, MAGNESIUM SULF SDV 50% 8 MEQ, THIAMINE INJ 100... INJ SCH ×5 (15:15)
[2023-01-01] MEDS: ACETAMINOPHEN 325 MG TAB PO PRN (21:49)
[2023-01-02] VITALS (7 sets, daily range): BP systolic 116–142; BP diastolic 75–90; PULSE 82–111; RESP 18–20; TEMP 97.7–98.5; O2SAT 95–100
[2023-01-02] MEDS: ACETAMINOPHEN 325 MG TAB PO PRN ×2 (05:01→20:03)
[2023-01-02] MEDS: GABAPENTIN 300 MG CAP PO SCH ×3 (05:01→21:43)
[2023-01-02] MEDS: METOPROLOL TARTRATE 25 MG TAB PO SCH ×3 (05:02→21:45)
[2023-01-02] MEDS: AZITHROMYCIN 500MG/ 250ML 250 ML IV SCH (09:33)
[2023-01-02] MEDS: PANTOPRAZOLE 40 MG/10 ML VIAL INJ IV SCH (09:33)
[2023-01-02] MEDS: ENOXAPARIN SOD 40 MG/0.4 ML SYRINGE SC SCH (09:33)
[2023-01-02] MEDS: cefTRIAXone 1GM/50ML D5W 50 ML IV SCH (09:33)
[2023-01-02] MEDS: CITALOPRAM HYDROBR 20 MG TAB PO SCH (09:34)
[2023-01-02] MEDS: amLODIPine BESYLATE 5 MG TAB PO SCH (09:34)
[2023-01-02] MEDS: SODIUM CHLOR 0.9% PF (SALINE LOCK) 10ML VIAL/SYR IV SCH ×2 (09:35→21:45)
[2023-01-02] MEDS: FAMOTIDINE (10MG/ML) 2ML VL IV SCH ×2 (09:35→21:45)
[2023-01-02] MEDS: FOLIC ACID 1 MG, MULTIPLE VITAMIN 10 ML, MAGNESIUM SULF SDV 50% 8 MEQ, THIAMINE INJ 100... INJ SCH ×5 (17:12)
[2023-01-03] VITALS (7 sets, daily range): BP systolic 104–136; BP diastolic 70–77; PULSE 82–109; RESP 14–20; TEMP 97.9–98.9; O2SAT 96–100
[2023-01-03] MEDS: GABAPENTIN 300 MG CAP PO SCH ×3 (05:32→20:57)
[2023-01-03] MEDS: METOPROLOL TARTRATE 25 MG TAB PO SCH ×3 (05:32→21:00)
[2023-01-03] MEDS: ACETAMINOPHEN 325 MG TAB PO PRN (05:34)
[2023-01-03] MEDS: cefTRIAXone 1GM/50ML D5W 50 ML IV SCH (09:26)
[2023-01-03] MEDS: AZITHROMYCIN 500MG/ 250ML 250 ML IV SCH (09:26)
[2023-01-03] MEDS: amLODIPine BESYLATE 5 MG TAB PO SCH (09:27)
[2023-01-03] MEDS: CITALOPRAM HYDROBR 20 MG TAB PO SCH (09:27)
[2023-01-03] MEDS: FAMOTIDINE (10MG/ML) 2ML VL IV SCH ×2 (09:27→21:01)
[2023-01-03] MEDS: SODIUM CHLOR 0.9% PF (SALINE LOCK) 10ML VIAL/SYR IV SCH ×2 (09:28→21:01)
[2023-01-03] MEDS: ENOXAPARIN SOD 40 MG/0.4 ML SYRINGE SC SCH (09:28)
[2023-01-03] MEDS: PANTOPRAZOLE 40 MG/10 ML VIAL INJ IV SCH (09:28)
[2023-01-03] MEDS: FOLIC ACID 1 MG, MULTIPLE VITAMIN 10 ML, MAGNESIUM SULF SDV 50% 8 MEQ, THIAMINE INJ 100... INJ SCH ×5 (14:36)
[2023-01-04 05:00] VITALS: BP 123/88; PULSE 82; RESP 16; TEMP 98.3; O2SAT 97
[2023-01-04] MEDS: GABAPENTIN 300 MG CAP PO SCH (05:12)
[2023-01-04] MEDS: METOPROLOL TARTRATE 25 MG TAB PO SCH (05:23)
== END 2023-01-04 05:37 | DRG 130 ==
LOC: ER 20:42 → EDUNIT# 20:42 → TELE 22:46 → ICU WEST 12-10 09:27 → DOU IN ICU 12-29 21:52 → TELE-EAST 12-30 18:11
PROVIDERS: ADMIT Nurse Practitioner; ATTEND Nurse Practitioner
PROC: 5A1955Z Respiratory Ventilation, Greater than 96 Consecutive Hours (ICD-10-PCS; principal; 2022-12-09)
PROC: 0BH17EZ Insertion of Endotracheal Airway into Trachea, Via Natural or Artificial Opening (ICD-10-PCS; 2022-12-09)
PROC: 06HM33Z Insertion of Infusion Device into Right Femoral Vein, Percutaneous Approach (ICD-10-PCS; 2022-12-09)
PROC: 02HV33Z Insertion of Infusion Device into Superior Vena Cava, Percutaneous Approach (ICD-10-PCS; 2022-12-12)
PROC: B548ZZA Ultrasonography of Superior Vena Cava, Guidance (ICD-10-PCS; 2022-12-12)
PROC: 5A09357 Assistance with Respiratory Ventilation, Less than 24 Consecutive Hours, Continuous Positive Airway Pressure (ICD-10-PCS; 2022-12-23)
PROC: 5A1955Z Respiratory Ventilation, Greater than 96 Consecutive Hours (ICD-10-PCS; 2022-12-23)
PROC: 0BH17EZ Insertion of Endotracheal Airway into Trachea, Via Natural or Artificial Opening (ICD-10-PCS; 2022-12-23)
DX: J96.01 Acute respiratory failure with hypoxia (principal); N17.0 Acute kidney failure with tubular necrosis; G92.8 Other toxic encephalopathy; I31.39 Other pericardial effusion (noninflammatory); F10.229 Alcohol dependence with intoxication, unspecified; J90 Pleural effusion, not elsewhere classified; Z20.822 Contact with and (suspected) exposure to COVID-19; J96.12 Chronic respiratory failure with hypercapnia; J81.1 Chronic pulmonary edema; I10 Essential (primary) hypertension; F32.A Depression, unspecified; F41.9 Anxiety disorder, unspecified; I07.1 Rheumatic tricuspid insufficiency; Z77.22 Contact with and (suspected) exposure to environmental tobacco smoke (acute) (chronic); J98.11 Atelectasis; Z68.41 Body mass index [BMI] 40.0-44.9, adult; E66.01 Morbid (severe) obesity due to excess calories; J45.909 Unspecified asthma, uncomplicated; Y90.8 Blood alcohol level of 240 mg/100 ml or more; Z79.899 Other long term (current) drug therapy; Z80.8 Family history of malignant neoplasm of other organs or systems; Z82.49 Family history of ischemic heart disease and other diseases of the circulatory system; Z82.5 Family history of asthma and other chronic lower respiratory diseases; Z83.3 Family history of diabetes mellitus; Z86.711 Personal history of pulmonary embolism
CPT/HCPCS: 31500; 36415; 36569; 36600; 70450; 70551; 71045; 71275; 80048; 80053; 80307; 80320; 81001; 82805; 82962; 83036; 83735; 83880; 84100; 84484; 84702; 85025; 85379; 85610; 85730; 87040; 87070; 87081; 87086; 87205; 87426; 92610; 93005; 93306; 93970; 94002; 94003; 94640; 94660; 95819; 97110; 97116; 97163; 97530; 99152; 99153; 99291; C9113; G0378; J0330; J0696; J1100; J2250; J2405; J2543; J2704; J3480; J3490; J7060